=== PATIENT | female | born 1950 | race Two or more races ===

== ENCOUNTER 2023-05-30 08:35 | Emergency (ER) | payer MEDICAID, MEDICARE ==
[~2023-05-30] VITALS: Ht 162.6 cm; Wt 100.0 kg
[~2023-05-30 08:35] MED LIST: CLO01T PO; NIFE-31 PO; OYST500T29 PO; POTA95TA2 OR; SIMV40TA18 PO
[2023-05-30 10:23] VITALS: BP 117/76; PULSE 84; RESP 24; TEMP 98; O2SAT 96
[2023-05-30] MEDS ORDERED: HYDROcodone-ACET 5/325MG TAB PO ONE (10:45)
[2023-05-30] MEDS ORDERED: MELO7.5T7 PO (13:05)
[2023-05-30] MEDS ORDERED: PRED20TA2 PO (13:05)
== END 2023-05-30 13:10 | disposition home or self-care (01) ==
LOC: ER 08:35 → EDBD 08:35 → ER 13:09
DX: M17.11 Unilateral primary osteoarthritis, right knee (principal); M19.071 Primary osteoarthritis, right ankle and foot; M54.16 Radiculopathy, lumbar region; I10 Essential (primary) hypertension; E78.5 Hyperlipidemia, unspecified; Z79.899 Other long term (current) drug therapy; Z88.6 Allergy status to analgesic agent; Z88.8 Allergy status to other drugs, medicaments and biological substances
CPT/HCPCS: 72131; 73562; 73630

== ENCOUNTER 2025-03-17 23:30 | Inpatient (IN) | payer OTHER, MEDICAID ==
[~2025-03-17] VITALS: Ht 152.4 cm; Wt 88.5 kg
[~2025-03-17 23:30] MED LIST changes: +MELO7.5T7 PO; +PRED20TA2 PO
[2025-03-18] VITALS (86 sets, daily range): BP systolic 116–171; BP diastolic 75–111; PULSE 84–168; RESP 13–94; TEMP 97.7–99.3; O2SAT 81–100
--- NOTE | 2025-03-18 00:02 | ED.PDOC ---
HPI Comments 75-year-old female who came to ER for chest pains. Patient has history of hypertension and dyslipidemia. Since 9:30 p.m., she has been experiencing substernal chest pains pressure, nonradiating, associated with the headaches and neck pain. Upon arrival blood pressure was elevated at 230/140 mm Hg Chief Complaint: Chest pain Time Seen by MD: 00:01 Primary Care Provider: UNKNOWN Reviewed Notes: Nurses Notes Allergies: Coded Allergies: Alcohol (Unverified Allergy, Unknown, 05/30/23) Aspirin (Unverified Allergy, Unknown, 05/30/23) Home Meds Active Scripts Prednisone (Prednisone) 20 Mg Tab, 40 MG PO DAILY, #20 MG Prov:ELEANOR FOSTER 05/30/23 Meloxicam (Meloxicam) 7.5 Mg Tab, 1 TAB PO BID, #30 TAB Prov:ELEANOR FOSTER 05/30/23 Reported Medications Omeprazole (Gnp Omeprazole) 20 Mg Tab, 20 MG PO PRN, TAB 03/18/25 Metoprolol Tartrate (Metoprolol Tartrate) 50 Mg Tab, 50 MG PO BID for 30 Days, MG 03/18/25 Losartan Potassium (Losartan Potassium) 50 Mg Tab, 50 MG PO DAILY for 30 Days, MG 03/18/25 Hydralazine Hcl (Hydralazine Hcl) 50 Mg Tab, 50 MG PO BID for 30 Days, MG 03/18/25 Oyster Shell Calcium (Calcium) 500 Mg Tab, 500 MG PO BID, TAB 01/13/14 Clonidine Hcl (CATAPRES TABLET) 0.1 Mg Tb, 0.1 MG PO HS 01/13/14 Nifedipine (Adalat Cc) 60 Mg Tab, 60 MG PO BID, TAB 01/13/14 Simvastatin (Simvastatin) 40 Mg Tab, 40 MG PO, TAB 01/13/14 Potassium (CHELATED POTASSIUM) 95 Mg Tab, 10 MEQ OR, TAB 01/13/14 Information Source: Patient Mode of Arrival: Ambulatory Severity: Moderate Timing: Hours Duration: Since onset Location: Substernal Radiation: No Radiation Quality: Pressure Onset: With Light Exertion Cardiac Risk Factors: Hyperlipidemia, HTN History of: Similar pain in past Modifying Factors: Nothing Associated Signs and Symptoms: Back Pain Past Medical History PAST MEDICAL HISTORY: High Lipids, HTN Surgical History: Denies all surgeries ICU REGISTERED NURSE History: No Pertinent ICU REGISTERED NURSE History Family History Family History: Reviewed,noncontributory to illness Social History Smoker: Non-Smoker Alcohol: Denies ETOH Use Drugs: Denies Drug Use Lives In: Home Constitutional: reports: weakness; denies: chills, diaphoresis, fatigue, fever, malaise, sweats, others EENTM: denies: blurred vision, double vision, ear bleeding, ear discharge, ear drainage, ear pain, ear ringing, eye pain, eye redness, hearing loss, mouth pain, mouth swelling, nasal discharge, nose bleeding, nose congestion, nose pain, photophobia, tearing, throat pain, throat swelling, voice changes, others Respiratory: denies: cough, hemoptysis, orthopnea, SOB at rest, shortness of breath, SOB with excertion, stridor, wheezing, others Cardiovascular: reports: chest pain; denies: dizzy spells, diaphoresis, Dyspnea on exertion, edema, irregular heart beat, left arm pain, lightheadedness, palpitations, PND, syncope, others Gastrointestinal: denies: abdomen distended, abdominal pain, blood streaked bowels, constipated, diarrhea, dysphagia, difficulty swallowing, hematemesis, melena, nausea, poor appetite, poor fluid intake, rectal bleeding, rectal pain, vomiting, others Genitourinary: denies: abnormal vagina bleeding, burning, dyspareunia, dysuria, flank pain, frequency, hematuria, incontinence, pain, , vagina discharge, urgency, others Neurological: reports: headache; denies: dizziness, fainting, left sided numbness, left sided weakness, numbness, paresthesia, pre-existing deficit, right sided numbness, right sided weakness, seizure, speech problems, tingling, tremors, weakness, others Musculoskeletal: reports: back pain; denies: gout, joint pain, joint swelling, muscle pain, muscle stiffness, neck pain, others Integumetry: denies: bruises, change in color, change in hair/nails, dryness, laceration, lesions, lumps, rash, wounds, others Allergic/Immunocompromised: denies: Difficulty Healing, Frequent Infections, Hives, Itching, others Hematologic/Lymphatic: denies: anemia, blood clots, easy bleeding, easy bruising, swollen glands, others Endocrine: denies: excessive hunger, excessive sweating, excessive thirst, excessive urination, flushing, intolerance to cold, intolerance to heat, unexplained weight gain, unexplained weight loss, others Psychiatric: denies: anxiety, bipolar disorder, depression, hopeless, panic disorder, schizophrenia, sleepless, suicidal, others Physical Exam General Appearance: No Apparent Distress, Normal HEENT: Normal ENT Inspection, Pharynx Normal, TMs Normal Neck: Full Range of Motion, Non-Tender, Normal, Normal Inspection Respiratory: Chest Non-Tender, Lungs Clear, No Accessory Muscle Use, No Respiratory Distress, Normal Breath Sounds Cardiovascular: No Edema, No JVD, No Murmur, No Gallop, Normal Peripheral Pulses, Regular Rate/Rhythm Breast Exam: Deferred Gastrointestinal: No Organomegaly, Non Tender, No Pulsatile Mass, Normal Bowel Sounds, Soft Genitalia: Deferred Pelvic: Deferred Rectal: Deferred Extremities: No calf tenderness, Normal capillary refill, Normal inspection, Normal range of motion, Non-tender, No pedal edema Musculoskeletal : Apperance: Normal Neurologic: Alert, filler leaf cutter long II-XII nml as Tested, No Motor Deficits, Normal Affect, Normal Mood, No Sensory Deficits Cerebellar Function: Normal Reflexes: Normal Skin: Dry, Normal Color, Warm Lymphatic: No Adenopathy EKG EKG : Pulse Rate (adult): 108 Cardiac Rhythm: Afib ST: New, Inf, Ant, Infarct Was a procedure done? Was a procedure done?: No CP Differential Dx Differential Diagnosis: Angina, Anxiety / Panic Attack Differential Diagnosis: HTN Essential, HTN Accelerated Differential Diagnosis: Angina, Chest Wall Pain, Costochondritis, Esophageal reflux/spasm, Gastritis, Myocardial Infarction X-Ray, Labs, Meds, VS Vital Signs Date Time Temp Pulse Resp B/P (MAP) Pulse Ox O2 Delivery O2 Flow Rate FiO2 03/18/25 00:02 97.9 137 28 197/112 (140) 93 97.9 03/18/25 00:02 108 03/17/25 23:43 108 03/17/25 23:37 97.8 128 22 216/134 94 97.8 Lab Test 03/18/25 00:02 Range/Units White Blood Count 11.5 H 4.4-10.8 10^3/uL Red Blood Count 4.98 4.0-5.20 10^6/uL Hemoglobin 15.2 12.2-16.2 g/dL Hematocrit 45.0 36.0-46.0 % Mean Corpuscular Volume 90.4 80.0-100.0 fL Mean Corpuscular Hemoglobin 30.5 28.0-32.0 pg Mean Corpuscular Hemoglobin Concent 33.8 32.0-36.0 g/dL Red Cell Distribution Width 13.8 11.8-14.3 % Platelet Count 251 140-450 10^3/uL Mean Platelet Volume 8.5 6.9-10.8 fL Neutrophils (%) (Auto) 70.8 37.0-80.0 % Lymphocytes (%) (Auto) 21.7 10.0-50.0 % Monocytes (%) (Auto) 5.8 0.0-12.0 % Eosinophils (%) (Auto) 1.1 0.0-7.0 % Basophils (%) (Auto) 0.6 0.0-2.0 % Neutrophils # (Auto) 8.1 1.6-8.6 10 ^3/uL Lymphocytes # (Auto) 2.5 0.4-5.4 10 ^3/uL Monocytes # (Auto) 0.7 0-1.3 10 ^3/uL Eosinophils # (Auto) 0.1 0-0.8 10 ^3/uL Basophils # (Auto) 0.1 0-0.2 10 ^3/uL Nucleated Red Blood Cells 0.1 % Prothrombin Time 10.6 9.3-11.8 sec Prothrombin Time INR 1.00 0.9-1.15 Activated Partial Thromboplast Time 26.6 24.5-34.5 SEC Sodium Level 139 136-145 mmol/L Potassium Level 3.2 L 3.5-5.1 mmol/L Chloride Level 102 98-107 mmol/L Carbon Dioxide Level 24 20-31 mmol/L Anion Gap 13 5-15 Blood Urea Nitrogen 12 9-23 mg/dL Creatinine 0.76 0.550-1.02 mg/dL Glomerular Filtration Rate Calc 81 >90 mL/min BUN/Creatinine Ratio 15.8 10.0-20.0 Serum Glucose 169 H 74-106 mg/dL Calcium Level 9.2 8.7-10.4 mg/dL Magnesium Level 1.9 1.6-2.6 mg/dL Total Bilirubin 0.5 0.2-1.0 mg/dL Aspartate Amino Transferase (AST) 45 H 13-40 U/L Alanine Aminotransferase (ALT) 18 7-40 U/L Alkaline Phosphatase 92 46-116 U/L Troponin I High Sensitivity 3352 *H </=34 ng/L Total Protein 7.6 5.7-8.2 g/dL Albumin 4.5 3.2-4.8 g/dL Time of 1ST Reevaluation: 23:58 Reevaluation 1ST: Unchanged Patient Education/Counseling: Diagnosis, Treatment Family Education/Counseling: Diagnosis, Treatment SEPSIS Sepsis Screen Physician Orders Chest Portable (03/17/25 23:57) Want Ad Receiver (03/17/25 23:57) Blood Pressure (03/17/25 23:57) Pulse Oximetry (03/17/25 23:57) Sodium Chloride Lock (Saline Lock Ns) (03/18/25 06:00) Aspirin Tablet (03/19/25 10:00) Oxygen Per Hour (03/17/25 23:57) Troponin-I Hs (03/18/25 02:57) Ct Angio Chest Contrast (03/17/25 23:57) Cl Left Heart Cath (03/18/25 00:23) Vital Signs Date Time Temp Pulse Resp B/P (MAP) Pulse Ox O2 Delivery O2 Flow Rate FiO2 03/18/25 00:02 97.9 137 28 197/112 (140) 93 97.9 03/18/25 00:02 108 03/17/25 23:43 108 03/17/25 23:37 97.8 128 22 216/134 94 97.8 Laboratory Tests Test 03/18/25 00:02 White Blood Count 11.5 10^3/uL (4.4-10.8) H Medications Medications Dose Ordered Sig/Davion Route Start Time Stop Time Status Last Admin Dose Admin Bivalirudin 250 mg STK-MED ONCE IV 03/18/25 00:28 03/18/25 00:25 DC 03/18/25 00:28 Fentanyl Citrate 100 mcg STK-MED ONCE .ROUTE 03/18/25 00:29 03/18/25 00:26 DC 03/18/25 00:29 Iodixanol 32,000 mg STK-MED ONCE IV 03/18/25 00:31 03/18/25 00:28 DC 03/18/25 00:31 Midazolam HCl 2 mg STK-MED ONCE .ROUTE 03/18/25 00:30 03/18/25 00:27 DC 03/18/25 00:30 Ondansetron HCl 4 mg STK-MED ONCE .ROUTE 03/18/25 00:49 03/18/25 00:47 DC 03/18/25 00:49 Departure 1 Departure Time of Disposition: 00:30 Impression: Primary Impression: Acute coronary syndrome Additional Impression: Acute inferior myocardial infarction Disposition: 09 ADMITTED INPATIENT Condition: Guarded Discharged With: Self Critical Care Note Critical Care Time?: Yes (35 min-critical care time only) Critical care comment: STEMI Total critical care time: Approximately 36 minutes Due to a high probability of clinically significant, life threatening deterioration, the patient required my highest level of preparedness to intervene emergently and I personally spent this critical care time directly and personally managing the patient. This critical care time included obtaining a history; examining the patient; pulse oximetry; ordering and review of studies; arranging urgent treatment with development of a management plan; evaluation of patient's response to treatment; frequent reassessment; and, discussions with other providers. This critical care time was performed to assess and manage the high probability of imminent, life-threatening deterioration that could result in multi-organ failure. It was exclusive of separately billable procedures and treating other patients. Stability Stability form required: No Heart Score Heart Score: Heart Score Response (Comments) Value History Highly Suspicious [address]-Deviation 2 Age >65 2 Risk Factors >3 or Hx ASHD 2 Troponin Normal limit 0 Total 8 I personally scribed for ANNI TELLEZ MD ([email or web address]) on 03/18/25 at 00:02. Electronically submitted by Leno Cardenas ([facility]). ANNI TELLEZ MD Mar 18, 2025 00:02
--- NOTE | 2025-03-18 00:16 | ECG ---
[facility] Test Date: 2025-03-17 Test Time: 23:43:08 Pat Name: JING VUONG Department: ED Room: [facility] Gender: F Time Signal Wirer: SARINA : 1950 Requested By: ANNI TELLEZ Order Number: [id number] Reading MD: Urbano Thrasher Measurements Intervals [place] Rate: 108 P: 0 UT: 0 QRS: 44 QRSD: 111 T: 76 QT: 369 QTc: 495 Interpretive Statements Atrial fibrillation Ventricular premature complex Inferior infarct, acute (RCA) Anterior infarct, acute Lateral leads are also involved Probable RV involvement, suggest recording right precordial leads Electronically Signed On 03-21-2025 10:23:03 PDT by Urbano Thrasher Please click the below link to view image of tracing.
[2025-03-18 00:17] LABS: Hematocrit 45.0 % (36.0-46.0); Hemoglobin 15.2 g/dL (12.2-16.2); Mean Corpuscular Hemoglobin 30.5 pg (28.0-32.0); Mean Corpuscular Volume 90.4 fL (80.0-100.0); Nucleated Red Blood Cells % 0.1 %
[2025-03-18] MEDS: HEPARIN SODIUM (PORCINE) 5000 UNITS/ML 1ML VIAL ONE (00:28)
[2025-03-18] MEDS: ATROPINE SULF 1 MG/10ml SYR ONE (00:28)
[2025-03-18] MEDS: VERAPAMIL 2.5MG/ML INJ 2ML VIAL IV ONE (00:28)
[2025-03-18] MEDS: ANGIOMAX 250 MG VIAL IV ONE (00:28)
[2025-03-18] MEDS: fentaNYL CITRATE 100 MCG/2 ML VL ONE (00:29)
[2025-03-18 00:30] LABS: Alanine Aminotransferase 18 U/L (7-40); Albumin 4.5 g/dL (3.2-4.8); Alkaline Phosphatase 92 U/L (46-116); Anion Gap 13 (5-15); BUN/Creatinine Ratio 15.8 (10.0-20.0); Blood Urea Nitrogen 12 mg/dL (9-23); Calcium 9.2 mg/dL (8.7-10.4); Carbon Dioxide 24 mmol/L (20-31); Chloride 102 mmol/L (98-107); Magnesium 1.9 mg/dL (1.6-2.6); Sodium 139 mmol/L (136-145); Total Protein 7.6 g/dL (5.7-8.2)
[2025-03-18] MEDS: LIDOCAINE 2%HCL (LOCAL ANESTH.) INJ 20ML MDV ONE (00:30)
[2025-03-18] MEDS: MIDAZOLAM HCL 2MG/2ML 2ml VIAL (1mg/ml) ONE (00:30)
[2025-03-18] MEDS: SODIUM CHL 0.9% 50 ML ONE (00:30)
[2025-03-18 00:31] LABS: Bilirubin, Total 0.5 mg/dL (0.2-1.0)
[2025-03-18] MEDS: IODIXANOL 320MG/ML 100ML BTL IV ONE (00:31)
[2025-03-18] MEDS: HEPARIN IN NS 1000Units/500mL 1,500 ML ONE (00:31)
--- NOTE | 2025-03-18 00:35 | DVHINCON2 ---
Date of service: Mar 18, 2025 History of Present Illness 75 yo F with hx of afib ? not compliant with doac, sees heritage cards, admitted for possibele stemi and inferior IL. pt had bp over 230 and chest pain radiating to back. irecommended to call code stemi but also to do a stat cta which is pending. i came to see patient and pt is in distress not taking doac. she has some kind of asa allergy but we have little information on this. Past Medical History reviewed Allergies: Coded Allergies: Alcohol (Unverified Allergy, Unknown, 05/30/23) Aspirin (Unverified Allergy, Unknown, 05/30/23) Home Meds Active Scripts Prednisone (Prednisone) 20 Mg Tab, 40 MG PO DAILY, #20 MG Prov:ELEANOR FOSTER 05/30/23 Meloxicam (Meloxicam) 7.5 Mg Tab, 1 TAB PO BID, #30 TAB Prov:ELEANOR FOSTER 05/30/23 Reported Medications Oyster Shell Calcium (Calcium) 500 Mg Tab, 500 MG PO BID, TAB 01/13/14 Clonidine Hcl (CATAPRES TABLET) 0.1 Mg Tb, 0.2 MG PO BID 01/13/14 Nifedipine (Adalat Cc) 60 Mg Tab, 60 MG PO BID, TAB 14 Simvastatin (Simvastatin) 40 Mg Tab, 40 MG PO, TAB 14 Potassium (CHELATED POTASSIUM) 95 Mg Tab, 10 MEQ OR, TAB 01/13/14 Current Medications Current Medications Medications (Trade) Dose Ordered Sig/Advion Route PRN Reason Start Time Stop Time Status Last Admin Sodium Chloride (Saline Lock Ns) 10 ml Q8HR IV 03/18/25 06:00 Aspirin 81 mg DAILY PO 03/19/25 10:00 UNV Review of Systems +chest pain +sob +neck pain +previous back pain diaphoresis Vital Signs Vital Signs Date Time Temp Pulse Resp B/P (MAP) Pulse Ox O2 Delivery O2 Flow Rate FiO2 03/18/25 00:02 108 03/17/25 23:37 97.8 22 216/134 94 97.8 Physical Exam mild to moderate distress s1 s2 irregular tachycardic diffuse rhonchi soft nt/nd trivial edema Labs/Diagnostic Data Labs Test 03/18/25 00:02 Range/Units White Blood Count 11.5 H 4.4-10.8 10^3/uL Red Blood Count 4.98 4.0-5.20 10^6/uL Hemoglobin 15.2 12.2-16.2 g/dL Hematocrit 45.0 36.0-46.0 % Mean Corpuscular Volume 90.4 80.0-100.0 fL Mean Corpuscular Hemoglobin 30.5 28.0-32.0 pg Mean Corpuscular Hemoglobin Concent 33.8 32.0-36.0 g/dL Red Cell Distribution Width 13.8 11.8-14.3 % Platelet Count 251 140-450 10^3/uL Mean Platelet Volume 8.5 6.9-10.8 fL Neutrophils (%) (Auto) 70.8 37.0-80.0 % Lymphocytes (%) (Auto) 21.7 10.0-50.0 % Monocytes (%) (Auto) 5.8 0.0-12.0 % Eosinophils (%) (Auto) 1.1 0.0-7.0 % Basophils (%) (Auto) 0.6 0.0-2.0 % Neutrophils # (Auto) 8.1 1.6-8.6 10 ^3/uL Lymphocytes # (Auto) 2.5 0.4-5.4 10 ^3/uL Monocytes # (Auto) 0.7 0-1.3 10 ^3/uL Eosinophils # (Auto) 0.1 0-0.8 10 ^3/uL Basophils # (Auto) 0.1 0-0.2 10 ^3/uL Nucleated Red Blood Cells 0.1 % Assessment inferior stemi r/o aortic dissection malignant HTN morbid obesity hx of afib afib rvr non compliance to doac Plan/Recommendation recommend emergency cath jaron after cta rules out dissection radiology delay may result in delay of stemi time but cta is necessary labs pending pain control further recs to follow pt was given informed consent in [place] with staff, at bedside 90 mins critical care time spent Plan discussed with: Patient, Spouse BELINDA WAGNER MD Mar 18, 2025 00:34
[2025-03-18 00:41] LABS: Glucose 169 mg/dL (74-106); Potassium 3.2 mmol/L (3.5-5.1)
--- NOTE | 2025-03-18 00:47 | DVH ---
CHEST RADIOGRAPH Indication: STEMI Technique: Single frontal view of the chest was obtained COMPARISON: None FINDINGS: Lines and Tubes: None Lungs: Multifocal bilateral pulmonary airspace disease, predominating within the bases. Moderate diff use increased prominence of the pulmonary vasculature. Pleura: No effusion. No pneumothorax. Cardiomediastinal contours: Cardiomegaly. Bones: Unremarkable IMPRESSION: 1. Cardiomegaly with pulmonary vascular congestion and bilateral lower lobe predominant airspace dise ase.
[2025-03-18] MEDS: ONDANSETRON HCL 4 MG/2 ML VIAL ONE ×2 (00:49→14:06)
[2025-03-18 01:00] LABS: INR 1.0 (0.9-1.15); Partial Thromboplastin Time 26.6 SEC (24.5-34.5); Prothrombin Time 10.6 sec (9.3-11.8)
--- NOTE | 2025-03-18 01:22 | DVHOP2 ---
Operative Report Operative Report CARDIAC PRINTER APPRENTICE PROCEDURE REPORT [place], [place] Date of Service: 03/18/25 Cat Skinner: Belinda Wagner MD PROCEDURES PERFORMED: Coronary angiogram, left heart catheterization, conscious sedation administration and supervision, less than 15 minutes; fluoroscopy use and interpretation. sedation 15-30 mins, PTCA 1 vessel, Acute DC intervention PREOPERATIVE DIAGNOSES: inferior STEMI POSTOP DIAGNOSIS: inferior STEMI DESCRIPTION OF PROCEDURE: The patient or appropriate family signed informed consent understanding the risks, benefits and alternatives of the procedure, they wished to proceed. The patient was brought to the cardiac aquatic laborer in n.p.o. state. The patient was prepped in a sterile fashion. Sedation was used per cardiac cath protocol. I administered 2 mL of 2% lidocaine to the right wrist. With an antegrade front wall puncture. I cannulated the right radial artery and placed a 6-[place] Glidesheath slender. Next, an intra-arterial spasmolytic was administered. Next, a - 6French Slayden catheter and JR4 guide and were used for coronary angiogram and LVEDP measurement and pressure pullback. At the completion of procedure, all guides and wires were removed, and there were no immediate complications. FINDINGS: RCA: very larged dominant vessel off the right sinus of Valsalva, there is mild plaque prox and mid . distall rca gives off rpDA that is acutely occluded very distally in a small branch about 2-2.25 mm in size at bifurcation. rpL is large and gives CX collaterals LEFT MAIN: Moderate size left main, it bifurcates into LAD and circumflex. distl LM has a 70% stenosis CIRCUMFLEX: Moderate caliber vessel coming off the left main with. mid CX is SPECIAL SERVICE OFFICER LAD: LAD is a moderate caliber vessel coming of the left main. prox LAD has moderate plaque. mid and distal LAD are patent INTERVENTION: We decided to proceed with coronary intervention. I started with a 6F _JR4 ___ Guide to intubate the _RCA _. Angiomax bolus and gtt was started. Following this, I decided to wire using an .014 BMW across the culprit lesion with ease. At this time, we performed balloon angioplasty with a _2.0 x 12 mm balloon 6__ ATMS over __15__ seconds with __3__ number of inflations. We went from macarena 0 to macarena 1-2 flow. this was a small distal vessel not amenable to stenting. CONCLUSIONS: 1. sp PTCA to an acutely occluded distal RPDA likely 2/2 to embolic from persistent afib not taking her doac PLAN: Aggressive risk factor modification and medical management for the patient. asa plavix for now likely needs doac mcc will need CT surgery eval for cabg once more stable amio gtt icu admit bp control, BELINDA WAGNER MD Mar 18, 2025 01:22
[2025-03-18] MEDS ORDERED: HEPARIN SODIUM (PORCINE) 5000 UNITS/ML 1ML VIAL IV ONE (01:30)
[2025-03-18] MEDS: AMIODARONE HCL (50 MG/ ML) 3 ML VIAL IV ONE (01:30)
[2025-03-18] MEDS: AMIODARONE BOLUS KIT 100 ML IV ONE (01:30)
[2025-03-18] MEDS ORDERED: NITROGLYCERIN 0.4 MG SL TAB SL PRN (01:30)
[2025-03-18] MEDS: CLOPIDOGREL BISULFATE 75 MG TAB ONE (01:30)
--- NOTE | 2025-03-18 02:00 | DVH ---
CLINICAL HISTORY: chest pain TECHNIQUE: CT angiogram of the chest was performed with intravenous contrast. 3D MIP reconstructed i mages were created and archived on the PACS system. This exam was performed according to our [facility] dose optimization program. Up-to-date CT equipment and radiation dose reduction techniques are u tilized as appropriate. 29.6 CTDI: 29.6 DLP: 2.54 WID: COMPARISON: None FINDINGS: Lower Neck: There is an 8 mm hypodense nodule in the left lobe of the thyroid on series 5, image 34. Axilla, Mediastinum and Maria Eugenia: No axillary lymphadenopathy. Mildly prominent mediastinal and hilar lym ph nodes. Heart and Great Vessels: Mild cardiomegaly with trace pericardial fluid. The thoracic aorta is paten t and normal caliber containing mild mixed atherosclerotic plaque. At least mild coronary artery calc ifications, 3-vessel. There is no central no central, segmental, or subsegmental pulmonary artery tika ling defect is seen to suggest pulmonary embolism. Airway, Lungs and Pleura: Trachea and central airways are patent. There is mild mosaic attenuation of the lungs. There is interlobular septal thickening in the lungs. There is ground-glass opacification of the lung parenchyma which is more pronounced in the mid to lower lungs.. Scattered linear areas o f atelectasis or scarring in the lungs. No pneumothorax or pleural effusion Chest Wall and Osseous Structures: Multilevel thoracic spondylosis. No destructive osseous lesion. Upper abdomen: Mild thickening of the bilateral adrenal glands. Tiny hypodensities in the bilateral k idneys which could reflect cysts. No acute abnormality in the upper abdomen. IMPRESSION: 1. No pulmonary embolism. 2. CHF and/or volume overload, with mild cardiomegaly, interstitial and alveolar pulmonary edema.
[2025-03-18] MEDS: HEPARIN DRIP/D5W 100UNITS/ML 250 ML IV SCH ×2 (02:08→11:00)
[2025-03-18] MEDS ORDERED: HEPARIN DRIP/D5W 100UNITS/ML 250 ML IV SCH (02:08)
[2025-03-18] MEDS: POTASSIUM CHL 20 Meq TABLET PO ONE (03:21)
[2025-03-18] MEDS: FUROSEMIDE 40 MG/4 ML VIAL IV ONE (03:21)
[2025-03-18] MEDS: AMIODARONE 360mg/200mL PREMIX 200 ML IV ONE (03:22)
[2025-03-18] MEDS: DIGOXIN (250MCG/ML) 2 ML AMPULE IV ONE ×3 (03:22→15:53)
[2025-03-18 03:59] LABS: Hematocrit 47.2 % (36.0-46.0); Hemoglobin 15.9 g/dL (12.2-16.2); Mean Corpuscular Hemoglobin 31.1 pg (28.0-32.0); Mean Corpuscular Volume 92.2 fL (80.0-100.0); Nucleated Red Blood Cells % 0.1 %
[2025-03-18 04:10] LABS: INR 1.48 (0.9-1.15); Partial Thromboplastin Time 63.6 SEC (24.5-34.5); Prothrombin Time 15.1 sec (9.3-11.8)
[2025-03-18] MEDS ORDERED: LOSA-534 PO (04:12)
[2025-03-18] MEDS ORDERED: HYDR50TA47 PO (04:12)
[2025-03-18] MEDS ORDERED: OMEP20TA PO (04:12)
[2025-03-18] MEDS ORDERED: METO-158 PO (04:12)
[2025-03-18] MEDS: SODIUM CHLOR 0.9% PF (SALINE LOCK) 10ML VIAL/SYR IV SCH (05:22)
[2025-03-18] MEDS: ACETAMINOPHEN 325 MG TAB PO PRN (06:30)
[2025-03-18] MEDS: LOSARTAN POTASSIUM 50 MG TAB PO SCH (07:04)
[2025-03-18] MEDS: HEPARIN DRIP/D5W 100UNITS/ML 250 ML IV ONE (07:47)
[2025-03-18] MEDS: METOPROLOL SUCCINATE XL 50 MG TAB PO SCH (09:52)
[2025-03-18] MEDS ORDERED: METOPROLOL SUCCINATE XL 50 MG TAB PO ONE (10:15)
[2025-03-18] MEDS: AMIODARONE 360mg/200mL PREMIX 200 ML IV SCH (10:40)
[2025-03-18 11:18] LABS: Hematocrit 47.0 % (36.0-46.0); Hemoglobin 15.9 g/dL (12.2-16.2); Mean Corpuscular Hemoglobin 30.7 pg (28.0-32.0); Mean Corpuscular Volume 90.6 fL (80.0-100.0); Nucleated Red Blood Cells % 0.0 %
[2025-03-18 11:36] LABS: Alanine Aminotransferase 42 U/L (7-40); Albumin 4.0 g/dL (3.2-4.8); Alkaline Phosphatase 83 U/L (46-116); Anion Gap 16 (5-15); BUN/Creatinine Ratio 15.2 (10.0-20.0); Bilirubin, Total 0.5 mg/dL (0.2-1.0); Blood Urea Nitrogen 16 mg/dL (9-23); Calcium 8.7 mg/dL (8.7-10.4); Carbon Dioxide 25 mmol/L (20-31); Chloride 95 mmol/L (98-107); Glucose 316 mg/dL (74-106); Magnesium 1.5 mg/dL (1.6-2.6); Potassium 3.8 mmol/L (3.5-5.1); Sodium 136 mmol/L (136-145); Total Protein 7.0 g/dL (5.7-8.2)
[2025-03-18 11:45] LABS: INR 1.15 (0.9-1.15); Prothrombin Time 12.0 sec (9.3-11.8)
[2025-03-18 11:47] LABS: Partial Thromboplastin Time 74.1 SEC (24.5-34.5)
--- NOTE | 2025-03-18 13:18 | DVHPN2 ---
Progress Note Date Seen: Mar 18, 2025 Medical Necessity Reason Pt with a Central, PICC or Fol: No Subjective Patient reports: Feels worse Other Systems: rapid afib +chest pain , sob headache Objective vital signs Vital Sign Date Time Temp Pulse Resp B/P (MAP) Pulse Ox O2 Delivery O2 Flow Rate FiO2 03/18/25 12:00 147 36 145/91 (109) 85 03/18/25 09:00 98.4 98.4 03/18/25 08:00 Nasal Cannula* 5 40 Total Intake and Output 03/17/25 03/17/25 03/18/25 15:00 23:00 07:00 Intake Total 423.32 ml Balance 423.32 ml medications Current Medications Medications Dose Ordered Sig/Davion Route Start Time Stop Time Status Last Admin Dose Admin Sodium Chloride 10 ml Q8HR IV 03/18/25 06:00 03/18/25 05:22 10 ML Aspirin 81 mg DAILY PO 03/19/25 10:00 UNV Nitroglycerin 0.4 mg Q5MINP PRN SL 03/18/25 01:30 Morphine Sulfate 2 mg Q30M PRN IV 03/18/25 01:30 Amiodarone HCL/ Dextrose 200 ml @ 16.66 mls/ hr Q12H IV 03/18/25 07:45 03/18/25 10:40 16.66 MLS/HR Acetaminophen 500 mg Q4HP PRN PO 03/18/25 06:15 03/18/25 06:30 500 MG Losartan Potassium 50 mg DAILY PO 03/18/25 10:00 03/18/25 07:04 50 MG Metoprolol Succinate 50 mg DAILY PO 03/19/25 10:00 Heparin Sodium/ Dextrose 250 ml @ 10 mls/hr Q24H IV 03/18/25 11:00 03/18/25 18:00 Apixaban 5 mg BID PO 03/19/25 10:00 Examination: GENERAL:Abnormal, HEENT:Abnormal, LUNGS:Abnormal, CVS:Abnormal, ABDOMEN:Abnormal laboratory and microbiology Laboratory Tests 03/18/25 11:04 Test 03/18/25 11:04 Range/Units Serum Glucose 316 H 74-106 mg/dL Problem List/Assessment/Plan Problem List/Assessment/Plan stemi resp failure severe chf afib rvr non complaince morbid obesity ckd severe 3v cad cont heparin gtt prn norco pulm consult for hypoxia iv lasix 2nd dose place blanco consider abg if indicated nebs as needed pt is in critical condition with high risk for decompensation d/w RN multiple times dw 90 mins critical care time spent today Plan discussed with: Patient My Orders My Orders Orders - BELINDA WAGNER MD Procedure Category Date Status Time Cl Left Heart Cath CL 03/18/25 Taken 00:23 Admit ADMIT 03/18/25 Transmitted 01:22 Admit ADMIT 03/18/25 Transmitted 01:23 Nitroglycerin PHA 03/18/25 In Process Sublingual (Ntrostat 01:30 Morphine Sulfate PHA 03/18/25 In Process Injection 01:30 Stat Ekg For Chest STUART 03/18/25 In Process Pain 01:23 Notify Of Changes STUART 03/18/25 In Process From Base 01:23 Woven Wood Shade Assembler For STUART 03/18/25 In Process 24 Hours 01:23 Emergency Dysrhythmia STUART 03/18/25 In Process Protocol 01:23 Rhythm Strips Once STUART 03/18/25 In Process Every Shift 01:23 Oxygen By Nasal RT 03/18/25 Transmitted Cannula 01:23 Platelet Monitoring STUART 03/18/25 In Process 01:23 Heparin Per STUART 03/18/25 In Process Standardized Proce 01:23 Discontinue All Im STUART 03/18/25 In Process Injections 01:23 Stat Ekg For Chest STUART 03/18/25 In Process Pain 01:23 Amiodarone PHA 03/18/25 In Process 360mg/200ml Premix 07:45 Communication Order ORDERS 03/18/25 Transmitted 01:26 Post Cath Vital Signs STUART 03/18/25 In Process Q 15min 02:46 Post Cath Activity STUART 03/18/25 In Process Protocol 02:46 Mrsa Screen BRIAN 03/18/25 In Process 05:27 Losartan Tablet PHA 03/18/25 In Process (Cozaar Tablet) 10:00 Metoprolol Xl PHA 03/19/25 In Process Succinate (Toprol Xl) 10:00 *Consult Dr[address] Morales CONS 03/18/25 Transmitted Calista 10:13 Insert Blanco Catheter STUART 03/18/25 In Process 10:13 Bedrest STUART 03/18/25 In Process 10:13 Heparin Drip/D5w PHA 03/18/25 In Process 100units/Ml 11:00 Communication Order ORDERS 03/18/25 Transmitted 19:00 Apixaban (Eliquis) PHA 03/19/25 In Process 10:00 Apixaban (Eliquis) PHA 03/18/25 In Process 20:00 PTPTT LAB 03/18/25 Logged 17:00 Heparin Per Pharmacy STUART 03/18/25 In Process Protocol 12:30 Date of Service: Mar 18, 2025 Billing Provider: BELINDA WAGNER MD Common Visit Codes: NOT BILLABLE BELINDA WAGNER MD Mar 18, 2025 13:18
--- NOTE | 2025-03-18 13:23 | DVHSR ---
APPROVED REPORT EXAM: Two-dimensional and M-mode echocardiogram with Doppler and color Doppler. Blood Pressure: 154/83 mmHg INDICATION STEMI RISK FACTORS Obesity: Height: 5', Weight: 193 DIMENSIONS LVDd3.5 (3.8-5.7cm)LA (2D)4.3 (1.9-4.0cm)Aortic Root3.0 (2.0-3.7cm) LVDs3.2 (2.5-4.0cm)LA (MM) (1.9-4.0cm)Aortic Cusp Exc1.5 (1.5-2.0cm) EF (%) 25.0 (55-70%)Rt. Atrium4.5 (1.9-4.0cm)Asc. Aorta cm IVSd1.4 (0.7-1.1cm)RV (D) (1.8-2.4cm) PWd1.4 (0.7-1.1cm) Mitral Valve MitralMitral Stenosis E wave1.30m/sMV Mean GR.mmHg E/A ratio0.02D MVAcm2 Aortic Valve Aortic ValveAortic Stenosis V10.90m/Lior Mean GR.5mmHg V21.70m/Lior Peak GR.13mmHg LVOT Diameter1.9 (1.8-2.4cm)Doppler AVA1.50cm2 Pulmonic Valve V20.70m/s Tricuspid Valve TR Velocity3.60m/s [id number] Other Information Quality : Rhythm : Atrial Fibrillation Conclusion lvef 30% apex is hypokinetic inferior wall hypokinetic basal wal is normokinetic RV not well seen left atrium enarged mild mitral regurg moderate tricuspid rgurg
[2025-03-18] MEDS ORDERED: HYDROcodone-ACET 5/325MG TAB PO PRN (13:30)
[2025-03-18] MEDS ORDERED: ONDANSETRON HCL 4 MG/2 ML VIAL IV PRN (13:45)
[2025-03-18] MEDS ORDERED: MORPHINE SULFATE INJ 2 MG/ml SYRG IV PRN (14:45)
[2025-03-18] MEDS: METOPROLOL TARTRATE 1MG/1ML-5ML VIAL IV ONE (14:45)
--- NOTE | 2025-03-18 14:52 | DVH ---
CHEST RADIOGRAPH Indication: shortness of breath, status change Technique: Single frontal view of the chest was obtained Comparison: XY CHEST PORTABLE on DOS: 03/18/25, CT CT ANGIO CHEST CONTRAST on DOS: 03/17/25 FINDINGS: Lines and Tubes: None Lungs: Dense patchy bilateral airspace disease may represent pulmonary edema. Pleura: No effusion. No pneumothorax. Cardiomediastinal contours: Stable cardiomegaly Bones: No acute osseous abnormality. IMPRESSION: 1. Dense patchy bilateral airspace disease may represent pulmonary edema. 2. Change from 03/18/2020 00:15:03 a.m.
[2025-03-18] MEDS: MORPHINE SULFATE INJ 2 MG/ml SYRG IV PRN (15:08)
[2025-03-18 16:07] LABS: Base Excess 2.4 mmol/L (-2.0-3.0)
[2025-03-18 16:15] LABS: COVID19 ANTIGEN SOFIA FIA NEGATIVE (NEGATIVE)
[2025-03-18 16:24] LABS: Base Excess 2.0 mmol/L (-2.0-3.0)
[2025-03-18] MEDS: MAGNESIUM SULFATE 1GM/100ML 100 ML IV SCH (16:46)
[2025-03-18] MEDS: FUROSEMIDE 40 MG/4 ML VIAL IV SCH (16:53)
[2025-03-18] MEDS: VANCOMYCIN 1.5GM/250ML 250 ML IV ONE (17:15)
[2025-03-18] MEDS: METOPROLOL SUCCINATE XL 50 MG TAB PO ONE (17:27)
[2025-03-18 18:02] LABS: INR 1.15 (0.9-1.15); Partial Thromboplastin Time 89.3 SEC (24.5-34.5); Prothrombin Time 12.0 sec (9.3-11.8)
[2025-03-18 18:15] LABS: Urine Protein, UAD 1+ (Negative)
[2025-03-18] MEDS: APIXABAN 5 MG TAB PO ONE (20:04)
[2025-03-18] MEDS: MAGNESIUM SULFATE 1GM/100ML 100 ML IV ONE (20:25)
[2025-03-18] MEDS: LORazepam 0.5 MG TAB PO PRN (21:05)
[2025-03-19] VITALS (43 sets, daily range): BP systolic 93–138; BP diastolic 61–89; PULSE 50–131; RESP 15–53; TEMP 97.7–99.3; O2SAT 86–97
--- NOTE | 2025-03-19 10:45 | DVHHP2 ---
Admitting Diagnosis: STEMI History of Present Illness HPI Patient is a 75-year-old female, Jehovah witness who presents due to complaint of chest pain that began the night prior. Patient's blood pressure was elevated on admission at 230/140. Code STEMI was called in the ER and patient was taken to [facility]. She underwent angioplasty of the RCA without stent placement. Patient was admitted to ICU and noted to be hypoxic, in atrial fibrillation with RVR and hypertensive. TTE showed EF of 30%. Patient admitted to ICU for further medical management. Home Meds Active Scripts Prednisone (Prednisone) 20 Mg Tab, 40 MG PO DAILY, #20 MG Prov:ELEANOR FOSTER 05/30/23 Meloxicam (Meloxicam) 7.5 Mg Tab, 1 TAB PO BID, #30 TAB Prov:ELEANOR FOSTER 05/30/23 Reported Medications Omeprazole (Gnp Omeprazole) 20 Mg Tab, 20 MG PO PRN, TAB 03/18/25 Metoprolol Tartrate (Metoprolol Tartrate) 50 Mg Tab, 50 MG PO BID for 30 Days, MG 03/18/25 Losartan Potassium (Losartan Potassium) 50 Mg Tab, 50 MG PO DAILY for 30 Days, MG 03/18/25 Hydralazine Hcl (Hydralazine Hcl) 50 Mg Tab, 50 MG PO BID for 30 Days, MG 03/18/25 Oyster Shell Calcium (Calcium) 500 Mg Tab, 500 MG PO BID, TAB 01/13/14 Clonidine Hcl (CATAPRES TABLET) 0.1 Mg Tb, 0.1 MG PO HS 01/13/14 Nifedipine (Adalat Cc) 60 Mg Tab, 60 MG PO BID, TAB 01/13/14 Simvastatin (Simvastatin) 40 Mg Tab, 40 MG PO, TAB 01/13/14 Potassium (CHELATED POTASSIUM) 95 Mg Tab, 10 MEQ OR, TAB 01/13/14 Past Medical History Cardiac: HTN Review of Systems Pulmonary/Respiratory: Dyspnea Cardiovascular: Chest Pain H&P Exam Vital Signs Vital Signs Date Time Temp Pulse Resp B/P (MAP) Pulse Ox O2 Delivery O2 Flow Rate FiO2 03/19/25 07:30 95 15 92 Hi-Flow Heated NC+ 50 60 60 03/19/25 07:01 97.7 115/71 (86) 97.7 General Appeara: Mild distress Pulmonary/Respiratory: Crackles Cardiovascular/Chest: Irregularly irregular Neuro/Mental St: Alert SEPSIS Sepsis Screen Date sepsis recognized/suspect: Mar 17, 2025 Time Sepsis recognized/suspect: 2341 Recent Procedure: No On Antibiotic Therapy: No Respiratory Rate >20: No Heart Rate >90: No Temp<36 C (96.8 F) or >38.3 C: No SBP <90 or MAP <65 mmHG: No New Acute Mental Status Change: No Is the patient on CPAP, BIPAP,: No Physician Orders Complete Blood Count (03/19/25 10:10) Basic Metabolic Panel (03/19/25 10:10) *Consult / (03/19/25 10:43) Albumin Ivpb (03/19/25 10:45) Vital Signs Date Time Temp Pulse Resp B/P (MAP) Pulse Ox O2 Delivery O2 Flow Rate FiO2 03/19/25 07:30 95 15 92 Hi-Flow Heated NC+ 50 60 60 03/19/25 07:30 15 92 Hi-Flow Heated NC+ 50 60 60 03/19/25 07:01 97.7 102 16 115/71 (86) 93 97.7 03/19/25 06:01 93 53 119/76 (90) 96 03/19/25 06:00 53 96 Hi-Flow Heated NC+ 50 65 65 03/19/25 06:00 93 03/19/25 05:32 116/68 03/19/25 05:01 100 44 116/68 (84) 94 03/19/25 04:23 98.7 93 41 119/64 (82) 92 98.7 03/19/25 04:00 107 03/19/25 04:00 42 93 Hi-Flow Heated NC+ 50 65 65 03/19/25 03:00 90 45 118/72 (87) 93 Labs/Xrays Labs Test 03/18/25 17:21 03/18/25 17:00 03/18/25 16:15 03/18/25 14:45 Range/Units Prothrombin Time 12.0 H 9.3-11.8 sec Prothrombin Time INR 1.15 0.9-1.15 Activated Partial Thromboplast Time 89.3 *H 24.5-34.5 SEC Urine Color Yellow Yellow Urine Clarity Clear Clear Urine pH 6.0 5.0-9.0 Urine Specific [place] > 1.050 H 1.001-1.035 Urine Protein 1+ H Negative Urine Ketones Trace Negative Urine Blood 2+ H Negative /uL Urine Nitrite Negative Negative Urine Bilirubin Negative Negative Urine Urobilinogen Normal Negative mg/dL Urine Leukocyte Esterase Negative Negative /uL Urine RBC 38 0 - 4 /hpf Urine Microscopic WBC 2 0-5 /HPF Urine Squamous Epithelial Cells None seen <5 /hpf Urine Bacteria None seen None Seen /hpf Urine Mucus Few None Seen Urine Glucose Trace Normal mg/dL Blood Gas Specimen Type Arterial Blood Gas Sample Site Right radial Blood Gas Patient Temperature 37.0 Arterial Blood Date Drawn [id number] Arterial Blood pH 7.463 H 7.350-7.450 Arterial Blood Partial Pressure CO2 36.3 32.0-45.0 mmHg Arterial Blood Partial Pressure O2 70.0 L 83.0-108.0 mmHg Arterial Blood HCO3 25.4 21.0-28.0 mmol/L Arterial Blood Oxygen Saturation 94.1 94.0-98.0 % Arterial Blood Base Excess 2.0 -2.0-3.0 mmol/L Arterial Blood Oxyhemoglobin 93.3 L 94.0-98.0 % Arterial Blood Carboxyhemoglobin 0.6 0.5-1.5 % Arterial Blood Methemoglobin 0.3 0.0-1.5 % Rocky Test Yes Blood Gas Total Hemoglobin 16.90 H 12.0-16.0 g/dL Blood Gas Liter Flow 50.00 Blood Gas Modality High flow FiO2 % 90.0 Influenza Type A Antigen Negative Negative Influenza Type B Antigen Negative Negative SARS-CoV-2 Antigen (Rapid) Negative NEGATIVE Test 03/18/25 14:30 03/18/25 11:04 Range/Units Blood Gas Spontaneous Rate 22 White Blood Count 20.4 #H 4.4-10.8 10^3/uL Red Blood Count 5.19 4.0-5.20 10^6/uL Hemoglobin 15.9 12.2-16.2 g/dL Hematocrit 47.0 H 36.0-46.0 % Mean Corpuscular Volume 90.6 80.0-100.0 fL Mean Corpuscular Hemoglobin 30.7 28.0-32.0 pg Mean Corpuscular Hemoglobin Concent 33.8 32.0-36.0 g/dL Red Cell Distribution Width 14.1 11.8-14.3 % Platelet Count 263 140-450 10^3/uL Mean Platelet Volume 8.6 6.9-10.8 fL Neutrophils (%) (Auto) 89.2 H 37.0-80.0 % Lymphocytes (%) (Auto) 5.5 L 10.0-50.0 % Monocytes (%) (Auto) 4.8 0.0-12.0 % Eosinophils (%) (Auto) 0.1 0.0-7.0 % Basophils (%) (Auto) 0.4 0.0-2.0 % Neutrophils # (Auto) 18.2 H 1.6-8.6 10 ^3/uL Lymphocytes # (Auto) 1.1 0.4-5.4 10 ^3/uL Monocytes # (Auto) 1.0 0-1.3 10 ^3/uL Eosinophils # (Auto) 0 0-0.8 10 ^3/uL Basophils # (Auto) 0.1 0-0.2 10 ^3/uL Nucleated Red Blood Cells 0.0 % Sodium Level 136 136-145 mmol/L Potassium Level 3.8 3.5-5.1 mmol/L Chloride Level 95 L 98-107 mmol/L Carbon Dioxide Level 25 20-31 mmol/L Anion Gap 16 H 5-15 Blood Urea Nitrogen 16 9-23 mg/dL Creatinine 1.05 #H 0.550-1.02 mg/dL Glomerular Filtration Rate Calc 55 >90 mL/min BUN/Creatinine Ratio 15.2 10.0-20.0 Serum Glucose 316 H 74-106 mg/dL Calcium Level 8.7 8.7-10.4 mg/dL Magnesium Level 1.5 L 1.6-2.6 mg/dL Total Bilirubin 0.5 0.2-1.0 mg/dL Aspartate Amino Transferase (AST) 270 H 13-40 U/L Alanine Aminotransferase (ALT) 42 H 7-40 U/L Alkaline Phosphatase 83 46-116 U/L Troponin I High Sensitivity > 26860 *H </=34 ng/L B-Type Natriuretic Peptide 405.63 0-100 pg/mL Total Protein 7.0 5.7-8.2 g/dL Albumin 4.0 3.2-4.8 g/dL Microbiology Date/Time Source Procedure Growth Status 03/18/25 04:30 Nose MRSA Screen - Final Complete Assessment/Plan Primary Diagnosis 1. STEMI Plan 2. Hypoxic Respiratory Failure, on HiFlo 3. CHF Exacerbation 4. End Stage CHF, EF 30% 5. Atrial Fibrillation with RVR 6. CARLOS Plan: - Cardiology consulted - Lasix 40 mg IV twice daily - Strict I's and O's with goal urinary output 2 to 3 L daily - Nephrology consulted due to concern for oliguria and CARLOS. Consider switching diuretic to Bumex. Avoid nephrotoxic medications. CARLOS likely worsening from multiple factors (contrast, diuretics, hypoperfusion from afib, congestion from CHF). - Renal ultrasound ordered - Pulmonary consulted for acute respiratory failure now currently on high flow. Presentation consistent with volume overload secondary to CHF. -Albumin 25-grams x 1 -Patient is Jehovah witness. No blood products. -Daily CBC and BMP - Full code Plan discussed with: Patient EDWARDO NESBITT Mar 19, 2025 10:45
[2025-03-19 11:12] LABS: Hematocrit 45.3 % (36.0-46.0); Hemoglobin 15.5 g/dL (12.2-16.2); Mean Corpuscular Hemoglobin 31.2 pg (28.0-32.0); Mean Corpuscular Volume 91.0 fL (80.0-100.0); Nucleated Red Blood Cells % 0.0 %
[2025-03-19 11:22] LABS: Potassium 3.7 mmol/L (3.5-5.1)
[2025-03-19 11:23] LABS: Anion Gap 10 (5-15); Calcium 8.9 mg/dL (8.7-10.4); Carbon Dioxide 27 mmol/L (20-31)
[2025-03-19 11:28] LABS: BUN/Creatinine Ratio 12.3 (10.0-20.0); Blood Urea Nitrogen 15 mg/dL (9-23)
[2025-03-19 11:45] LABS: Chloride 96 mmol/L (98-107); Glucose 181 mg/dL (74-106); Sodium 133 mmol/L (136-145)
[2025-03-19] MEDS: LOSARTAN POTASSIUM 50 MG TAB PO SCH (11:45)
[2025-03-19] MEDS: METOPROLOL SUCCINATE XL 50 MG TAB PO SCH (11:45)
[2025-03-19] MEDS: ALBUMIN 25% 50 ML IV ONE (11:48)
[2025-03-19] MEDS: APIXABAN 5 MG TAB PO SCH (12:11)
--- NOTE | 2025-03-19 14:33 | DVHINCON2 ---
Date of service: Mar 19, [address] Liu Reason for Consultation Acute respiratory failure History of Present Illness History Source: Patient Exam Limitations: No limitations HPI Patient is a 75-year old lady with a history of diabetes and hypertension who presented with substernal chest pain. Was seen in the emergency room where she was found to have STEMI and she was subsequently taken to the research laboratory manager for intervention. After the procedure, patient was found to be hypoxemic and required high flow 60%, pulmonology was consulted to assist in management. Home Meds Active Scripts Prednisone (Prednisone) 20 Mg Tab, 40 MG PO DAILY, #20 MG Prov:ELEANOR FOSTER 05/30/23 Meloxicam (Meloxicam) 7.5 Mg Tab, 1 TAB PO BID, #30 TAB Prov:ELEANOR FOSTER 05/30/23 Reported Medications Omeprazole (Gnp Omeprazole) 20 Mg Tab, 20 MG PO PRN, TAB 03/18/25 Metoprolol Tartrate (Metoprolol Tartrate) 50 Mg Tab, 50 MG PO BID for 30 Days, MG 03/18/25 Losartan Potassium (Losartan Potassium) 50 Mg Tab, 50 MG PO DAILY for 30 Days, MG 03/18/25 Hydralazine Hcl (Hydralazine Hcl) 50 Mg Tab, 50 MG PO BID for 30 Days, MG 03/18/25 Oyster Shell Calcium (Calcium) 500 Mg Tab, 500 MG PO BID, TAB 01/13/14 Clonidine Hcl (CATAPRES TABLET) 0.1 Mg Tb, 0.1 MG PO HS 01/13/14 Nifedipine (Adalat Cc) 60 Mg Tab, 60 MG PO BID, TAB 01/13/14 Simvastatin (Simvastatin) 40 Mg Tab, 40 MG PO, TAB 01/13/14 Potassium (CHELATED POTASSIUM) 95 Mg Tab, 10 MEQ OR, TAB 01/13/14 Past Medical History Cardiac: HTN Pulmonary: No pertinent Hx Central Nervous System: No pertinent Hx GI: No pertinent Hx Hemotology/Oncology: No pertinent Hx Hepatobiliary: No pertinent Hx Psychiatric: No pertinent Hx Musculoskeletal: No pertinent Hx Rheumotologic: No pertinent Hx Infectious Disease: No peritnent Hx ENT: No pertinent Hx Renal/: No pertinent Hx Endocrine: NIDDM Dermatology: No pertinent Hx Past Surgical History: No pertinent Hx Family History: No pertinent Hx Smoker: No Hx (Negative) Alocohol: None Drugs: None Lives with: With family Domestic Violence: Neg Review of Systems Constitutional: No symptom reported Ears, Nose, & Throat: No symptom reported Eyes: No symptom reported Pulmonary/Respiratory: No symptom reported Cardiovascular: Chest Pain Gastrointestinal: No symptom reported Genitourinary: No symptom reported Musculoskeletal: No symptom reported Skin: No symptom reported Psychiatric: No symptom reported Endocrine: No symptom reported Hemotologic/Lymphatic: No symptom reported H&P Exam Vital Signs Vital Signs Date Time Temp Pulse Resp B/P (MAP) Pulse Ox O2 Delivery O2 Flow Rate FiO2 03/19/25 14:00 118 03/19/25 14:00 18 127/89 (102) 94 03/19/25 14:00 Hi-Flow Heated NC+ 50 60 60 03/19/25 11:01 99.0 99.0 General Appeara: Well developed, Well nourished, Normal Appearance Head Exam: Normal inspection Neck Exam: Normal inspection, Non-tender, Normal alignment Eye Exam: bilateral eye Normal inspection, bilateral eye PERRL, bilateral eye EOMI Ear Exam: bilateral ear Auricle normal, bilateral ear Canal normal, bilateral ear TM normal Nasal Exam: Normal inspection Mouth: Normal Inspection Pulmonary/Respiratory: Decreased breath sounds Cardiovascular/Chest: Normal inspection Peripheral Pulses: 4+ Radial (R), 4+ Radial (L), 4+ Brachial (R), 4+ Brachial (L) Abdominal Exam: Normal bowel sounds Labs/Xrays Labs Test 03/19/25 10:42 03/18/25 17:21 03/18/25 17:00 03/18/25 16:15 Range/Units White Blood Count 16.0 H 4.4-10.8 10^3/uL Red Blood Count 4.98 4.0-5.20 10^6/uL Hemoglobin 15.5 12.2-16.2 g/dL Hematocrit 45.3 36.0-46.0 % Mean Corpuscular Volume 91.0 80.0-100.0 fL Mean Corpuscular Hemoglobin 31.2 28.0-32.0 pg Mean Corpuscular Hemoglobin Concent 34.3 32.0-36.0 g/dL Red Cell Distribution Width 14.0 11.8-14.3 % Platelet Count 214 140-450 10^3/uL Mean Platelet Volume 8.6 6.9-10.8 fL Neutrophils (%) (Auto) 88.7 H 37.0-80.0 % Lymphocytes (%) (Auto) 6.6 L 10.0-50.0 % Monocytes (%) (Auto) 4.6 0.0-12.0 % Eosinophils (%) (Auto) 0.0 0.0-7.0 % Basophils (%) (Auto) 0.1 0.0-2.0 % Neutrophils # (Auto) 14.2 H 1.6-8.6 10 ^3/uL Lymphocytes # (Auto) 1.1 0.4-5.4 10 ^3/uL Monocytes # (Auto) 0.7 0-1.3 10 ^3/uL Eosinophils # (Auto) 0 0-0.8 10 ^3/uL Basophils # (Auto) 0 0-0.2 10 ^3/uL Nucleated Red Blood Cells 0.0 % Sodium Level 133 L 136-145 mmol/L Potassium Level 3.7 3.5-5.1 mmol/L Chloride Level 96 L 98-107 mmol/L Carbon Dioxide Level 27 20-31 mmol/L Anion Gap 10 5-15 Blood Urea Nitrogen 15 9-23 mg/dL Creatinine 1.22 H 0.550-1.02 mg/dL Glomerular Filtration Rate Calc 46 >90 mL/min BUN/Creatinine Ratio 12.3 10.0-20.0 Serum Glucose 181 H 74-106 mg/dL Calcium Level 8.9 8.7-10.4 mg/dL Prothrombin Time 12.0 H 9.3-11.8 sec Prothrombin Time INR 1.15 0.9-1.15 Activated Partial Thromboplast Time 89.3 *H 24.5-34.5 SEC Urine Color Yellow Yellow Urine Clarity Clear Clear Urine pH 6.0 5.0-9.0 Urine Specific [place] > 1.050 H 1.001-1.035 Urine Protein 1+ H Negative Urine Ketones Trace Negative Urine Blood 2+ H Negative /uL Urine Nitrite Negative Negative Urine Bilirubin Negative Negative Urine Urobilinogen Normal Negative mg/dL Urine Leukocyte Esterase Negative Negative /uL Urine RBC 38 0 - 4 /hpf Urine Microscopic WBC 2 0-5 /HPF Urine Squamous Epithelial Cells None seen <5 /hpf Urine Bacteria None seen None Seen /hpf Urine Mucus Few None Seen Urine Glucose Trace Normal mg/dL Blood Gas Specimen Type Arterial Blood Gas Sample Site Right radial Blood Gas Patient Temperature 37.0 Arterial Blood Date Drawn [id number] Arterial Blood pH 7.463 H 7.350-7.450 Arterial Blood Partial Pressure CO2 36.3 32.0-45.0 mmHg Arterial Blood Partial Pressure O2 70.0 L 83.0-108.0 mmHg Arterial Blood HCO3 25.4 21.0-28.0 mmol/L Arterial Blood Oxygen Saturation 94.1 94.0-98.0 % Arterial Blood Base Excess 2.0 -2.0-3.0 mmol/L Arterial Blood Oxyhemoglobin 93.3 L 94.0-98.0 % Arterial Blood Carboxyhemoglobin 0.6 0.5-1.5 % Arterial Blood Methemoglobin 0.3 0.0-1.5 % Rocky Test Yes Blood Gas Total Hemoglobin 16.90 H 12.0-16.0 g/dL Blood Gas Liter Flow 50.00 Blood Gas Modality High flow FiO2 % 90.0 Test 03/18/25 14:45 03/18/25 14:30 03/18/25 11:04 Range/Units Influenza Type A Antigen Negative Negative Influenza Type B Antigen Negative Negative SARS-CoV-2 Antigen (Rapid) Negative NEGATIVE Blood Gas Spontaneous Rate 22 Magnesium Level 1.5 L 1.6-2.6 mg/dL Total Bilirubin 0.5 0.2-1.0 mg/dL Aspartate Amino Transferase (AST) 270 H 13-40 U/L Alanine Aminotransferase (ALT) 42 H 7-40 U/L Alkaline Phosphatase 83 46-116 U/L Troponin I High Sensitivity > 26521 *H </=34 ng/L B-Type Natriuretic Peptide 405.63 0-100 pg/mL Total Protein 7.0 5.7-8.2 g/dL Albumin 4.0 3.2-4.8 g/dL Microbiology Date/Time Source Procedure Growth Status 03/18/25 04:30 Nose MRSA Screen - Final Complete Assessment/Plan Plan Impression Acute hypoxemic respiratory failure Pulmonary edema vs pneumonia Atelectasis STEMI Patient seen and examined in [facility] Events High oxygen requirements On bipap settings 26/01 Respiratory status tenuous Labs and imaging reviewed Chest x-ray shows almost complete white out suggestive of pulmonary edema vs pneumonia Management Supplemental oxygen Titrate to maintain sats 90% or above Incentive spirometry Prn bipap 06/19 For increased work of breathing Titrate to comfort Antibiotics Bronchodilators Diurese Monitor renal function Monitor electrolytes Supplement as needed F/u cardiology DVT prophylaxis Critical care time 35 minutes Plan discussed with: Patient PIPPA ROSARIO MD Mar 19, 2025 14:33
--- NOTE | 2025-03-19 15:04 | DVH ---
INDICATION: Oliguria TECHNIQUE: Multiple real-time sonographic images of the kidneys and bladder were obtained. COMPARISON: None FINDINGS: RIGHT kidney measures 9.47 cm in length. No hydronephrosis. LEFT kidney measures 0.05 cm in length. No hydronephrosis. No large intraluminal masses are seen in the bladder. Eledr catheter in bladder is emptying IMPRESSION: 1. No hydronephrosis. 2. Elder catheter noted in decompressed bladder.
[2025-03-19] MEDS: IPRATROPIUM BROM 0.5 MG/2.5ML INH SOL NEB ONE (17:11)
--- NOTE | 2025-03-19 17:39 | DVHINCON2 ---
Date of service: Mar 19, 2025 Reason for Consultation Acute kidney injury History of Present Illness 75-year-old female past medical history of coronary artery disease presents to the hospital with shortness of breath and chest pain. Patient was admitted as a STEMI, patient is status post heart catheterization which showed multivessel disease. She also received a CT of the chest to rule out pulmonary embolism. Her hospital course is notable for age performed fibrillation with rapid ventricular response and congestive heart failure with EF of 30%. Nephrology was consulted due to progressive worsening renal function. At presentation her blood pressure was significantly elevated however over the course of the hospitalization was developed hypotension due to tachyarrhythmia Past Medical History CAD Allergies: Coded Allergies: Alcohol (Unverified Allergy, Unknown, 05/30/23) Aspirin (Unverified Allergy, Unknown, 05/30/23) Home Meds Active Scripts Prednisone (Prednisone) 20 Mg Tab, 40 MG PO DAILY, #20 MG Prov:ELEANOR FOSTER 05/30/23 Meloxicam (Meloxicam) 7.5 Mg Tab, 1 TAB PO BID, #30 TAB Prov:ELEANOR FOSTER 05/30/23 Reported Medications Omeprazole (Gnp Omeprazole) 20 Mg Tab, 20 MG PO PRN, TAB 03/18/25 Metoprolol Tartrate (Metoprolol Tartrate) 50 Mg Tab, 50 MG PO BID for 30 Days, MG 03/18/25 Losartan Potassium (Losartan Potassium) 50 Mg Tab, 50 MG PO DAILY for 30 Days, MG 03/18/25 Hydralazine Hcl (Hydralazine Hcl) 50 Mg Tab, 50 MG PO BID for 30 Days, MG 03/18/25 Oyster Shell Calcium (Calcium) 500 Mg Tab, 500 MG PO BID, TAB 01/13/14 Clonidine Hcl (CATAPRES TABLET) 0.1 Mg Tb, 0.1 MG PO HS 01/13/14 Nifedipine (Adalat Cc) 60 Mg Tab, 60 MG PO BID, TAB 01/13/14 Simvastatin (Simvastatin) 40 Mg Tab, 40 MG PO, TAB 01/13/14 Potassium (CHELATED POTASSIUM) 95 Mg Tab, 10 MEQ OR, TAB 01/13/14 Current Medications Current Medications Medications (Trade) Dose Ordered Sig/Davion Route PRN Reason Start Time Stop Time Status Last Admin Aspirin 81 mg DAILY PO 03/19/25 10:00 Hold Metoprolol Succinate (Toprol Xl) 50 mg DAILY PO 03/19/25 10:00 03/19/25 11:45 Apixaban (Eliquis) 5 mg BID PO 03/19/25 10:00 03/19/25 12:11 Losartan Potassium (Cozaar Tablet) 50 mg DAILY PO 03/19/25 11:45 03/19/25 16:14 DC Review of Systems Shortness of breath and chest pain palpitations H&P Exam Vital Signs/I&O Vital Sign Date Time Temp Pulse Resp B/P (MAP) Pulse Ox O2 Delivery O2 Flow Rate FiO2 03/19/25 17:11 117 28 93 03/19/25 14:51 50.0 60 03/19/25 14:00 127/89 (102) 03/19/25 14:00 Hi-Flow Heated NC+ 03/19/25 11:01 99.0 99.0 Intake and Output 03/18/25 03/19/25 19:00 07:00 Intake Total 696.61 ml 243.26 ml Output Total 300 ml 200 ml Balance 396.61 ml 43.26 ml Intake Oral 60 ml IV Total 696.61 ml 183.26 ml Output Urine Total 300 ml 200 ml # Voids 1 # Bowel Movements 1 Physical Exam Elderly female Appears in respiratory distress Has expiratory wheezes Irregularly irregular rate and rhythm No pitting edema Elder catheter Labs/Diagnostic Data Labs/Diagnostic Data Laboratory Tests Test 03/19/25 10:42 03/18/25 17:21 03/18/25 17:00 03/18/25 16:15 Range/Units White Blood Count 16.0 H 4.4-10.8 10^3/uL Red Blood Count 4.98 4.0-5.20 10^6/uL Hemoglobin 15.5 12.2-16.2 g/dL Hematocrit 45.3 36.0-46.0 % Mean Corpuscular Volume 91.0 80.0-100.0 fL Mean Corpuscular Hemoglobin 31.2 28.0-32.0 pg Mean Corpuscular Hemoglobin Concent 34.3 32.0-36.0 g/dL Red Cell Distribution Width 14.0 11.8-14.3 % Platelet Count 214 140-450 10^3/uL Mean Platelet Volume 8.6 6.9-10.8 fL Neutrophils (%) (Auto) 88.7 H 37.0-80.0 % Lymphocytes (%) (Auto) 6.6 L 10.0-50.0 % Monocytes (%) (Auto) 4.6 0.0-12.0 % Eosinophils (%) (Auto) 0.0 0.0-7.0 % Basophils (%) (Auto) 0.1 0.0-2.0 % Neutrophils # (Auto) 14.2 H 1.6-8.6 10 ^3/uL Lymphocytes # (Auto) 1.1 0.4-5.4 10 ^3/uL Monocytes # (Auto) 0.7 0-1.3 10 ^3/uL Eosinophils # (Auto) 0 0-0.8 10 ^3/uL Basophils # (Auto) 0 0-0.2 10 ^3/uL Nucleated Red Blood Cells 0.0 % Sodium Level 133 L 136-145 mmol/L Potassium Level 3.7 3.5-5.1 mmol/L Chloride Level 96 L 98-107 mmol/L Carbon Dioxide Level 27 20-31 mmol/L Anion Gap 10 5-15 Blood Urea Nitrogen 15 9-23 mg/dL Creatinine 1.22 H 0.550-1.02 mg/dL Glomerular Filtration Rate Calc 46 >90 mL/min BUN/Creatinine Ratio 12.3 10.0-20.0 Serum Glucose 181 H 74-106 mg/dL Calcium Level 8.9 8.7-10.4 mg/dL Prothrombin Time 12.0 H 9.3-11.8 sec Prothrombin Time INR 1.15 0.9-1.15 Activated Partial Thromboplast Time 89.3 *H 24.5-34.5 SEC Urine Color Yellow Yellow Urine Clarity Clear Clear Urine pH 6.0 5.0-9.0 Urine Specific [place] > 1.050 H 1.001-1.035 Urine Protein 1+ H Negative Urine Ketones Trace Negative Urine Blood 2+ H Negative /uL Urine Nitrite Negative Negative Urine Bilirubin Negative Negative Urine Urobilinogen Normal Negative mg/dL Urine Leukocyte Esterase Negative Negative /uL Urine RBC 38 0 - 4 /hpf Urine Microscopic WBC 2 0-5 /HPF Urine Squamous Epithelial Cells None seen <5 /hpf Urine Bacteria None seen None Seen /hpf Urine Mucus Few None Seen Urine Glucose Trace Normal mg/dL Blood Gas Specimen Type Arterial Blood Gas Sample Site Right radial Blood Gas Patient Temperature 37.0 Arterial Blood Date Drawn [id number] Arterial Blood pH 7.463 H 7.350-7.450 Arterial Blood Partial Pressure CO2 36.3 32.0-45.0 mmHg Arterial Blood Partial Pressure O2 70.0 L 83.0-108.0 mmHg Arterial Blood HCO3 25.4 21.0-28.0 mmol/L Arterial Blood Oxygen Saturation 94.1 94.0-98.0 % Arterial Blood Base Excess 2.0 -2.0-3.0 mmol/L Arterial Blood Oxyhemoglobin 93.3 L 94.0-98.0 % Arterial Blood Carboxyhemoglobin 0.6 0.5-1.5 % Arterial Blood Methemoglobin 0.3 0.0-1.5 % Rocky Test Yes Blood Gas Total Hemoglobin 16.90 H 12.0-16.0 g/dL Blood Gas Liter Flow 50.00 Blood Gas Modality High flow FiO2 % 90.0 Test 03/18/25 14:45 03/18/25 14:30 03/18/25 11:04 03/18/25 02:45 Range/Units Influenza Type A Antigen Negative Negative Influenza Type B Antigen Negative Negative SARS-CoV-2 Antigen (Rapid) Negative NEGATIVE Blood Gas Specimen Type Arterial Blood Gas Sample Site Right radial Blood Gas Patient Temperature 37.0 Arterial Blood Date Drawn [id number] Arterial Blood pH 7.472 H 7.350-7.450 Arterial Blood Partial Pressure CO2 35.9 32.0-45.0 mmHg Arterial Blood Partial Pressure O2 60.8 L 83.0-108.0 mmHg Arterial Blood HCO3 25.7 21.0-28.0 mmol/L Arterial Blood Oxygen Saturation 91.6 L 94.0-98.0 % Arterial Blood Base Excess 2.4 -2.0-3.0 mmol/L Arterial Blood Oxyhemoglobin 91.0 L 94.0-98.0 % Arterial Blood Carboxyhemoglobin 0.4 L 0.5-1.5 % Arterial Blood Methemoglobin 0.3 0.0-1.5 % Rocky Test Yes Blood Gas Total Hemoglobin 16.70 H 12.0-16.0 g/dL Blood Gas Modality Mask - nrb Blood Gas Spontaneous Rate 22 FiO2 % 100.0 White Blood Count 20.4 #H 13.0 H 4.4-10.8 10^3/uL Red Blood Count 5.19 5.12 4.0-5.20 10^6/uL Hemoglobin 15.9 15.9 12.2-16.2 g/dL Hematocrit 47.0 H 47.2 H 36.0-46.0 % Mean Corpuscular Volume 90.6 92.2 80.0-100.0 fL Mean Corpuscular Hemoglobin 30.7 31.1 28.0-32.0 pg Mean Corpuscular Hemoglobin Concent 33.8 33.7 32.0-36.0 g/dL Red Cell Distribution Width 14.1 14.4 H 11.8-14.3 % Platelet Count 263 255 140-450 10^3/uL Mean Platelet Volume 8.6 8.7 6.9-10.8 fL Neutrophils (%) (Auto) 89.2 H 86.5 H 37.0-80.0 % Lymphocytes (%) (Auto) 5.5 L 10.0 10.0-50.0 % Monocytes (%) (Auto) 4.8 2.8 0.0-12.0 % Eosinophils (%) (Auto) 0.1 0.2 0.0-7.0 % Basophils (%) (Auto) 0.4 0.5 0.0-2.0 % Neutrophils # (Auto) 18.2 H 11.2 H 1.6-8.6 10 ^3/uL Lymphocytes # (Auto) 1.1 1.3 0.4-5.4 10 ^3/uL Monocytes # (Auto) 1.0 0.4 0-1.3 10 ^3/uL Eosinophils # (Auto) 0 0 0-0.8 10 ^3/uL Basophils # (Auto) 0.1 0.1 0-0.2 10 ^3/uL Nucleated Red Blood Cells 0.0 0.1 % Prothrombin Time 12.0 H 15.1 H 9.3-11.8 sec Prothrombin Time INR 1.15 1.48 H 0.9-1.15 Activated Partial Thromboplast Time 74.1 *H 63.6 H 24.5-34.5 SEC Sodium Level 136 136-145 mmol/L Potassium Level 3.8 3.5-5.1 mmol/L Chloride Level 95 L 98-107 mmol/L Carbon Dioxide Level 25 20-31 mmol/L Anion Gap 16 H 5-15 Blood Urea Nitrogen 16 9-23 mg/dL Creatinine 1.05 #H 0.550-1.02 mg/dL Glomerular Filtration Rate Calc 55 >90 mL/min BUN/Creatinine Ratio 15.2 10.0-20.0 Serum Glucose 316 H 74-106 mg/dL Calcium Level 8.7 8.7-10.4 mg/dL Magnesium Level 1.5 L 1.6-2.6 mg/dL Total Bilirubin 0.5 0.2-1.0 mg/dL Aspartate Amino Transferase (AST) 270 H 13-40 U/L Alanine Aminotransferase (ALT) 42 H 7-40 U/L Alkaline Phosphatase 83 46-116 U/L Troponin I High Sensitivity > 38314 *H 94916 *H </=34 ng/L B-Type Natriuretic Peptide 405.63 0-100 pg/mL Total Protein 7.0 5.7-8.2 g/dL Albumin 4.0 3.2-4.8 g/dL Test 03/18/25 00:02 Range/Units White Blood Count 11.5 H 4.4-10.8 10^3/uL Red Blood Count 4.98 4.0-5.20 10^6/uL Hemoglobin 15.2 12.2-16.2 g/dL Hematocrit 45.0 36.0-46.0 % Mean Corpuscular Volume 90.4 80.0-100.0 fL Mean Corpuscular Hemoglobin 30.5 28.0-32.0 pg Mean Corpuscular Hemoglobin Concent 33.8 32.0-36.0 g/dL Red Cell Distribution Width 13.8 11.8-14.3 % Platelet Count 251 140-450 10^3/uL Mean Platelet Volume 8.5 6.9-10.8 fL Neutrophils (%) (Auto) 70.8 37.0-80.0 % Lymphocytes (%) (Auto) 21.7 10.0-50.0 % Monocytes (%) (Auto) 5.8 0.0-12.0 % Eosinophils (%) (Auto) 1.1 0.0-7.0 % Basophils (%) (Auto) 0.6 0.0-2.0 % Neutrophils # (Auto) 8.1 1.6-8.6 10 ^3/uL Lymphocytes # (Auto) 2.5 0.4-5.4 10 ^3/uL Monocytes # (Auto) 0.7 0-1.3 10 ^3/uL Eosinophils # (Auto) 0.1 0-0.8 10 ^3/uL Basophils # (Auto) 0.1 0-0.2 10 ^3/uL Nucleated Red Blood Cells 0.1 % Prothrombin Time 10.6 9.3-11.8 sec Prothrombin Time INR 1.00 0.9-1.15 Activated Partial Thromboplast Time 26.6 24.5-34.5 SEC Sodium Level 139 136-145 mmol/L Potassium Level 3.2 L 3.5-5.1 mmol/L Chloride Level 102 98-107 mmol/L Carbon Dioxide Level 24 20-31 mmol/L Anion Gap 13 5-15 Blood Urea Nitrogen 12 9-23 mg/dL Creatinine 0.76 0.550-1.02 mg/dL Glomerular Filtration Rate Calc 81 >90 mL/min BUN/Creatinine Ratio 15.8 10.0-20.0 Serum Glucose 169 H 74-106 mg/dL Calcium Level 9.2 8.7-10.4 mg/dL Magnesium Level 1.9 1.6-2.6 mg/dL Total Bilirubin 0.5 0.2-1.0 mg/dL Aspartate Amino Transferase (AST) 45 H 13-40 U/L Alanine Aminotransferase (ALT) 18 7-40 U/L Alkaline Phosphatase 92 46-116 U/L Troponin I High Sensitivity 3352 *H </=34 ng/L Total Protein 7.6 5.7-8.2 g/dL Albumin 4.5 3.2-4.8 g/dL Microbiology Date/Time Source Procedure Growth Status 03/18/25 04:30 Nose MRSA Screen - Final Complete Assessment 75-year-old female past medical history coronary artery disease presents to the hospital with acute ST elevated myocardial infarction status post heart catheterization tonsil have multivessel disease Acute kidney injury multifactorial hemodynamic mediated pustule contrast exposure Renal function is normal STEMI with three-vessel disease seen on left heart catheterization Status post CTA pulmonary arteries negative for pulmonary embolism Decompensated heart failure with ejection fraction 30% Atrial fibrillation with rapid ventricular response Recommend improve hemodynamics, amiodarone drip due to tachy arrhythmia Maintain mean arterial pressure greater than 65 Strict Is&Os patient currently has Elder catheter Recommend nebulizer treatment with non beta agonist because currently tachyca rdic Continue with Lasix Cardiology on the case Guarded prognosis given multivessel cardiac disease no indication for dialysis at this time O'Octavio close monitoring Critical care time 33 minutes, total care time 55 minutes Plan discussed with: Patient, Son SHANNAGusLAYNE MD Mar 19, 2025 17:38
[2025-03-20] VITALS (47 sets, daily range): BP systolic 106–151; BP diastolic 60–99; PULSE 79–112; RESP 13–40; TEMP 98.4–98.7; O2SAT 88–96
[2025-03-20] MEDS: IPRATROPIUM BROM 0.5 MG/2.5ML INH SOL NEB PRN (04:03)
[2025-03-20] MEDS: ALBUTEROL SULF 2.5 MG/0.5ML(0.5%) NEB SOLN NEB PRN (04:03)
[2025-03-20 05:04] LABS: Anion Gap 9 (5-15); Carbon Dioxide 29 mmol/L (20-31); Potassium 3.8 mmol/L (3.5-5.1)
[2025-03-20 05:05] LABS: Calcium 9.5 mg/dL (8.7-10.4)
[2025-03-20 05:07] LABS: Chloride 95 mmol/L (98-107); Sodium 133 mmol/L (136-145)
[2025-03-20 05:09] LABS: Hematocrit 44.4 % (36.0-46.0); Hemoglobin 15.1 g/dL (12.2-16.2); Mean Corpuscular Hemoglobin 30.6 pg (28.0-32.0); Mean Corpuscular Volume 90.0 fL (80.0-100.0); Nucleated Red Blood Cells % 0.0 %
[2025-03-20 05:10] LABS: BUN/Creatinine Ratio 17.1 (10.0-20.0); Blood Urea Nitrogen 21 mg/dL (9-23)
[2025-03-20 05:11] LABS: Magnesium 2.3 mg/dL (1.6-2.6)
[2025-03-20 05:13] LABS: Glucose 177 mg/dL (74-106)
[2025-03-20 09:38] LABS: Base Excess 3.1 mmol/L (-2.0-3.0)
--- NOTE | 2025-03-20 10:35 | DVHPN2 ---
Progress Note Date Seen: Mar 20, 2025 Medical Necessity Reason Pt with a Central, PICC or Fol: Yes The following are medically ne: Elder Catheter Subjective Patient reports: Feels better Objective vital signs Vital Sign Date Time Temp Pulse Resp B/P (MAP) Pulse Ox O2 Delivery O2 Flow Rate FiO2 03/20/25 08:03 98 28 93 50.0 35 03/20/25 08:00 Hi-Flow Heated NC+ 03/20/25 06:00 127/85 (99) 03/20/25 04:00 98.6 98.6 Total Intake and Output 03/19/25 03/19/25 03/20/25 14:59 22:59 06:59 Intake Total 166.62 ml 633.28 ml 173.28 ml Output Total 400 ml 500 ml Balance 166.62 ml 233.28 ml -326.72 ml medications Current Medications Medications Dose Ordered Sig/Davion Route Start Time Stop Time Status Last Admin Dose Admin Sodium Chloride 10 ml Q8HR IV 03/18/25 06:00 03/20/25 05:41 10 ML Aspirin 81 mg DAILY PO 03/19/25 10:00 Hold Nitroglycerin 0.4 mg Q5MINP PRN SL 03/18/25 01:30 Morphine Sulfate 2 mg Q30M PRN IV 03/18/25 01:30 03/18/25 15:08 2 MG Amiodarone HCL/ Dextrose 200 ml @ 16.66 mls/ hr Q12H IV 03/18/25 07:45 03/20/25 07:07 16.66 MLS/HR Acetaminophen 500 mg Q4HP PRN PO 03/18/25 06:15 03/19/25 16:18 500 MG Metoprolol Succinate 50 mg DAILY PO 03/19/25 10:00 03/19/25 11:45 50 MG Apixaban 5 mg BID PO 03/19/25 10:00 03/19/25 22:32 5 MG Acetaminophen/ Hydrocodone Bitart 1 tab Q4HPRN PRN PO 03/18/25 13:30 Hold Lorazepam 0.5 mg Q12HP PRN PO 03/18/25 13:30 03/18/25 21:05 0.5 MG Ondansetron HCl 4 mg Q8HPRN PRN IV 03/18/25 13:45 Furosemide 40 mg BIDD IV 03/18/25 14:45 9/7/25 05:41 40 MG Morphine Sulfate 2 mg Q4HPRN PRN IV 03/18/25 14:45 Albuterol 2.5 mg Q4HPRN PRN NEB 03/20/25 02:45 03/20/25 08:01 2.5 MG Ipratropium [place] 0.5 mg Q4HPRN PRN NEB 03/20/25 02:45 03/20/25 08:01 0.5 MG Examination: GENERAL:Abnormal, LUNGS:Abnormal, CVS:Abnormal laboratory and microbiology Laboratory Tests 03/20/25 04:40 Test 03/20/25 04:40 Range/Units Serum Glucose 177 H 74-106 mg/dL Microbiology Date/Time Source Procedure Growth Status 03/18/25 04:30 Nose MRSA Screen - Final Complete Problem List/Assessment/Plan Problem List/Assessment/Plan 75-year-old female past medical history coronary artery disease presents to the hospital with acute ST elevated myocardial infarction status post heart catheterization tonsil have multivessel disease Acute kidney injury multifactorial hemodynamic mediated pustule contrast exposure Renal function is normal STEMI with three-vessel disease seen on left heart catheterization Status post CTA pulmonary arteries negative for pulmonary embolism Decompensated heart failure with ejection fraction 30% Atrial fibrillation with rapid ventricular response Hold losartan until BP and CARLOS has improved Recommend improve hemodynamics, amiodarone drip due to tachy arrhythmia Maintain mean arterial pressure greater than 65 Strict Is&Os patient currently has Elder catheter Recommend nebulizer treatment with non beta agonist because currently tachycardic Continue with Lasix q12 hrs Cardiology on the case reports severe 3v disease Guarded prognosis given multivessel cardiac disease no indication for dialysis at this time Plan discussed with: Patient Critical Care Time (mins): 33 LAYNE RAMON MD Mar 20, 2025 10:35
[2025-03-20] MEDS ORDERED: DEXTROSE (50%) 50ML SYRG IV PRN (12:45)
--- NOTE | 2025-03-20 13:24 | DVHPN2 ---
Progress Note - Dictate Date Seen: Mar 20, 2025 Medical Necessity Reason Pt with a Central, PICC or Fol: Yes The following are medically ne: Elder Catheter vital signs Vital Sign Date Time Temp Pulse Resp B/P (MAP) Pulse Ox O2 Delivery O2 Flow Rate FiO2 03/20/25 12:19 95 32 92 50.0 35 03/20/25 10:39 113/75 03/20/25 08:00 Hi-Flow Heated NC+ 03/20/25 04:00 98.6 98.6 Total Intake and Output 03/19/25 03/19/25 03/20/25 15:00 23:00 07:00 Intake Total 183.28 ml 633.28 ml 156.62 ml Output Total 400 ml 500 ml Balance 183.28 ml 233.28 ml -343.38 ml medications Current Medications Medications Dose Ordered Sig/Davion Route Start Time Stop Time Status Last Admin Dose Admin Sodium Chloride 10 ml Q8HR IV 03/18/25 06:00 03/20/25 05:41 10 ML Aspirin 81 mg DAILY PO 03/19/25 10:00 Hold Nitroglycerin 0.4 mg Q5MINP PRN SL 03/18/25 01:30 Morphine Sulfate 2 mg Q30M PRN IV 03/18/25 01:30 03/18/25 15:08 2 MG Amiodarone HCL/ Dextrose 200 ml @ 16.66 mls/ hr Q12H IV 03/18/25 07:45 03/20/25 07:07 16.66 MLS/HR Acetaminophen 500 mg Q4HP PRN PO 03/18/25 06:15 03/19/25 16:18 500 MG Metoprolol Succinate 50 mg DAILY PO 03/19/25 10:00 03/20/25 10:39 50 MG Apixaban 5 mg BID PO 03/19/25 10:00 03/20/25 10:38 5 MG Acetaminophen/ Hydrocodone Bitart 1 tab Q4HPRN PRN PO 03/18/25 13:30 Hold Lorazepam 0.5 mg Q12HP PRN PO 03/18/25 13:30 03/18/25 21:05 0.5 MG Ondansetron HCl 4 mg Q8HPRN PRN IV 03/18/25 13:45 Furosemide 40 mg BIDD IV 03/18/25 14:45 03/20/25 05:41 40 MG Morphine Sulfate 2 mg Q4HPRN PRN IV 03/18/25 14:45 Albuterol 2.5 mg Q4HPRN PRN NEB 03/20/25 02:45 03/20/25 08:01 2.5 MG Ipratropium [place] 0.5 mg Q4HPRN PRN NEB 03/20/25 02:45 03/20/25 08:01 0.5 MG Diagnostic Test (Pha) 1 strip ACHS 03/20/25 17:00 UNV Insulin Human Regular AC SC 03/20/25 17:00 UNV Insulin Human Regular HS SC 03/20/25 22:00 UNV Dextrose 50 ml UD PRN IV 03/20/25 12:45 UNV laboratory and microbiology Laboratory Tests 03/20/25 04:40 Test 03/20/25 04:40 Range/Units Serum Glucose 177 H 74-106 mg/dL Assessment/Plan Impression Acute hypoxemic respiratory failure Pulmonary edema vs pneumonia Atelectasis STEMI Patient seen and examined in ANDI Events High oxygen requirements On high flow 50% FiO2 Respiratory status tenuous Labs and imaging reviewed Chest x-ray shows ARDS/pneumonia/pulmonary edema Management Supplemental oxygen Titrate to maintain sats 90% or above Incentive spirometry Prn bipap 06/19 For increased work of breathing Titrate to comfort Continue antibiotics Bronchodilators Diurese Monitor renal function Monitor electrolytes Supplement as needed F/u cardiology Obtain chest x-ray in AM DVT prophylaxis Critical care time 35 minutes Plan discussed with: Patient PIPPA ROSARIO MD Mar 20, 2025 13:24
--- NOTE | 2025-03-20 13:59 | DVH ---
CHEST RADIOGRAPH Indication: resp failure Technique: Single frontal view of the chest was obtained Comparison: XY CHEST PORTABLE on DOS: 03/18/25, XY CHEST PORTABLE on DOS: 03/18/25 FINDINGS: Lines and Tubes: None Lungs: Extensive pulmonary edema, grossly unchanged. Underlying focal consolidation is not excluded. Pleura: No effusion. No pneumothorax. Cardiomediastinal contours: Unremarkable Bones: No acute osseous abnormality. IMPRESSION: 1. Extensive pulmonary edema, unchanged. 2. Underlying focal consolidation is not excluded.
--- NOTE | 2025-03-20 15:09 | DVHPN2 ---
Progress Note - Dictate Date Seen: Mar 20, 2025 Medical Necessity Reason Pt with a Central, PICC or Fol: Yes The following are medically ne: Elder Catheter vital signs Vital Sign Date Time Temp Pulse Resp B/P (MAP) Pulse Ox O2 Delivery O2 Flow Rate FiO2 03/20/25 14:42 97 28 93 50.0 35 03/20/25 14:01 117/72 (87) 03/20/25 14:00 Hi-Flow Heated NC+ 03/20/25 12:00 98.7 98.7 Total Intake and Output 03/19/25 03/19/25 03/20/25 15:00 23:00 07:00 Intake Total 183.28 ml 633.28 ml 173.28 ml Output Total 400 ml 500 ml Balance 183.28 ml 233.28 ml -326.72 ml medications Current Medications Medications Dose Ordered Sig/Davion Route Start Time Stop Time Status Last Admin Dose Admin Sodium Chloride 10 ml Q8HR IV 03/18/25 06:00 03/20/25 14:02 10 ML Aspirin 81 mg DAILY PO 03/19/25 10:00 Hold Nitroglycerin 0.4 mg Q5MINP PRN SL 03/18/25 01:30 Morphine Sulfate 2 mg Q30M PRN IV 03/18/25 01:30 03/18/25 15:08 2 MG Amiodarone HCL/ Dextrose 200 ml @ 16.66 mls/ hr Q12H IV 03/18/25 07:45 03/20/25 07:07 16.66 MLS/HR Acetaminophen 500 mg Q4HP PRN PO 03/18/25 06:15 03/19/25 16:18 500 MG Metoprolol Succinate 50 mg DAILY PO 03/19/25 10:00 03/20/25 10:39 50 MG Apixaban 5 mg BID PO 03/19/25 10:00 03/20/25 10:38 5 MG Acetaminophen/ Hydrocodone Bitart 1 tab Q4HPRN PRN PO 03/18/25 13:30 Hold Lorazepam 0.5 mg Q12HP PRN PO 03/18/25 13:30 03/18/25 21:05 0.5 MG Ondansetron HCl 4 mg Q8HPRN PRN IV 03/18/25 13:45 Furosemide 40 mg BIDD IV 03/18/25 14:45 03/20/25 05:41 40 MG Morphine Sulfate 2 mg Q4HPRN PRN IV 03/18/25 14:45 Albuterol 2.5 mg Q4HPRN PRN NEB 03/20/25 02:45 03/20/25 08:01 2.5 MG Ipratropium [place] 0.5 mg Q4HPRN PRN NEB 03/20/25 02:45 03/20/25 08:01 0.5 MG Diagnostic Test (Pha) 1 strip ACHS 03/20/25 17:00 Insulin Human Regular AC SC 03/20/25 17:00 Insulin Human Regular HS SC 03/20/25 22:00 Dextrose 50 ml UD PRN IV 03/20/25 12:45 laboratory and microbiology Laboratory Tests 03/20/25 04:40 Test 03/20/25 04:40 Range/Units Serum Glucose 177 H 74-106 mg/dL Assessment/Plan 1. STEMI Plan 2. Hypoxic Respiratory Failure, on HiFlo 3. CHF Exacerbation 4. End Stage CHF, EF 30% 5. Atrial Fibrillation with RVR 6. CARLOS 7. Concern for Pneumonia, likely mixed gram positive and negative bacteria. 8. Diffuse CAD Plan: - Cardiology consulted, Dr. Ortega. -LHC showed emboli in RCA, likely from patient not being compliant with eliquis with underlying atrial fibrillation. Cardiology recommending CABG evaluation outpatient once medically improved and stable. - Lasix 40 mg IV twice daily - Continue amiodarone for atrial fibrillation with RVR. Currently rate controlled. -Anticoagulation with Eliquis 5mg BID - Strict I's and O's with goal urinary output 2 to 3 L daily. Metolazone 5mg PO once given on 03/20 to further increase diuresis. Will cautiously monitor renal function. - Nephrology consulted due to concern for oliguria and CARLOS. Will consider switching diuretic to Bumexif diuresis insufficient. Avoid nephrotoxic medications. CARLOS likely worsening from multiple factors (contrast, diuretics, hypoperfusion from afib, congestion from CHF). Holding ARB until improvement in CARLOS. - Renal ultrasound ordered, WNL - Pulmonary consulted for acute respiratory failure now currently on high flow. Presentation consistent with volume overload secondary to CHF. Avoid albuterol given atrial fibrillation with RVR. CXR shows persistent pulmlnary edema with concern for focal consolidation. Will start on ceftriaxone and azithromycin for PNA treatment. -Albumin 25-grams x 1 03/19. -Discussed plan of care with spouse and patient. -Patient is Jehovah witness. No blood products. -Daily CBC and BMP - Full code Plan discussed with: Patient, Spouse EDWARDO NESBITT DO Mar 20, 2025 15:09
[2025-03-20] MEDS: AZITHROMYCIN 250 MG TAB PO SCH (16:38)
[2025-03-20] MEDS: ACCU-CHEK COMFORT CURVE STRIP VI SCH (17:44)
[2025-03-20] MEDS: InsuLIN REG 1unit/0.01ml Soln (100units/ml) SC SCH ×2 (18:18→22:49)
[2025-03-21] VITALS (85 sets, daily range): BP systolic 120–174; BP diastolic 70–110; PULSE 74–103; RESP 11–36; TEMP 97.9–98.8; O2SAT 90–99
--- NOTE | 2025-03-21 05:18 | DVH ---
CHEST RADIOGRAPH Indication: ARDS Technique: Single frontal view of the chest was obtained COMPARISON: XY CHEST XRAY 1 VIEW on DOS: 03/20/25, XY CHEST PORTABLE on DOS: 03/18/25, XY CHEST PORTABLE on DOS: 03/18/25, CT CT ANGIO CHEST CONTRAST on DOS: 03/17/25 FINDINGS: Lines and Tubes: None Lungs: Moderate interval improvement in diffuse multifocal bilateral pulmonary airspace disease. Pleura: No effusion. No pneumothorax. Cardiomediastinal contours: Cardiomegaly. Bones: Unremarkable IMPRESSION: 1. Moderate interval improvement in diffuse multifocal bilateral pulmonary airspace disease. 2. Cardiomegaly.
[2025-03-21 07:59] LABS: Calcium 8.8 mg/dL (8.7-10.4); Potassium 3.8 mmol/L (3.5-5.1); Sodium 137 mmol/L (136-145)
[2025-03-21 08:00] LABS: Anion Gap 13 (5-15); Carbon Dioxide 29 mmol/L (20-31)
[2025-03-21 08:05] LABS: BUN/Creatinine Ratio 31.6 (10.0-20.0)
[2025-03-21 08:10] LABS: Blood Urea Nitrogen 37 mg/dL (9-23); Chloride 95 mmol/L (98-107); Glucose 120 mg/dL (74-106)
[2025-03-21 09:11] LABS: Base Excess 7.6 mmol/L (-2.0-3.0)
--- NOTE | 2025-03-21 09:28 | DVHPN2 ---
Progress Note Date Seen: Mar 21, 2025 Medical Necessity Reason Pt with a Central, PICC or Fol: Yes The following are medically ne: Elder Catheter Subjective Review of Systems: RESPIRATORY:Abnormal Other Systems: Patient seen and examined by myself today in follow-up Objective vital signs Vital Sign Date Time Temp Pulse Resp B/P (MAP) Pulse Ox O2 Delivery O2 Flow Rate FiO2 03/21/25 08:00 98.6 87 30 137/100 (112) 98 98.6 03/21/25 06:47 45.0 40 03/21/25 00:01 Hi-Flow NC Total Intake and Output 03/20/25 03/20/25 03/21/25 14:59 22:59 06:59 Intake Total 1333.28 ml 1373.28 ml 433.28 ml Output Total 1250 ml 1150 ml Balance 1333.28 ml 123.28 ml -716.72 ml medications Current Medications Medications Dose Ordered Sig/Davion Route Start Time Stop Time Status Last Admin Dose Admin Sodium Chloride 10 ml Q8HR IV 03/18/25 06:00 03/21/25 06:23 10 ML Aspirin 81 mg DAILY PO 03/19/25 10:00 Hold Nitroglycerin 0.4 mg Q5MINP PRN SL 03/18/25 01:30 Morphine Sulfate 2 mg Q30M PRN IV 03/18/25 01:30 03/18/25 15:08 2 MG Amiodarone HCL/ Dextrose 200 ml @ 16.66 mls/ hr Q12H IV 03/18/25 07:45 03/21/25 07:51 16.66 MLS/HR Acetaminophen 500 mg Q4HP PRN PO 03/18/25 06:15 03/19/25 16:18 500 MG Metoprolol Succinate 50 mg DAILY PO 03/19/25 10:00 03/20/25 10:39 50 MG Apixaban 5 mg BID PO 03/19/25 10:00 03/20/25 22:50 5 MG Acetaminophen/ Hydrocodone Bitart 1 tab Q4HPRN PRN PO 03/18/25 13:30 Hold Lorazepam 0.5 mg Q12HP PRN PO 03/18/25 13:30 03/18/25 21:05 0.5 MG Ondansetron HCl 4 mg Q8HPRN PRN IV 03/18/25 13:45 Furosemide 40 mg BIDD IV 03/18/25 14:45 03/21/25 06:22 40 MG Morphine Sulfate 2 mg Q4HPRN PRN IV 03/18/25 14:45 Albuterol 2.5 mg Q4HPRN PRN NEB 03/20/25 02:45 03/20/25 08:01 2.5 MG Ipratropium [place] 0.5 mg Q4HPRN PRN NEB 03/20/25 02:45 03/20/25 08:01 0.5 MG Diagnostic Test (Pha) 1 strip ACHS 03/20/25 17:00 03/21/25 06:23 1 STRIP Insulin Human Regular AC SC 03/20/25 17:00 03/21/25 07:21 2 UNITS Insulin Human Regular HS SC 03/20/25 22:00 03/20/25 22:49 2 UNITS Dextrose 50 ml UD PRN IV 03/20/25 12:45 Ceftriaxone Sodium 50 ml @ 100 mls/hr DAILY@09 IV 03/20/25 15:15 03/20/25 16:38 100 MLS/HR Azithromycin 500 mg DAILY PO 03/20/25 15:15 03/20/25 16:38 500 MG Examination: LUNGS:Normal, CVS:Normal, MSK:Normal laboratory and microbiology Laboratory Tests 03/21/25 06:26 03/20/25 04:40 Test 03/21/25 06:26 Range/Units Serum Glucose 120 H 74-106 mg/dL Microbiology Date/Time Source Procedure Growth Status 03/19/25 19:55 Urine - Elder Port Urine Culture - Preliminary Resulted 03/18/25 04:30 Nose MRSA Screen - Final Complete Problem List/Assessment/Plan Problem List/Assessment/Plan Acute kidney injury superimposed Chronic Kidney Disease secondary hemodynamic mediated STEMI with three-vessel disease s/p left heart catheterization Status post CTA pulmonary arteries negative for pulmonary embolism Congestive heart failure, ejection fraction 30% Atrial fibrillation with rapid ventricular response Hypertension Hyperglycemia Recommendations Kidney function is improving Increased urine output Strict I&Os Kidney ultrasound reported no hydronephrosis Check urine protein and electrolytes Blood pressure control Check hemoglobin A1c We will continue to follow up Plan discussed with: Patient RORO ROMERO MD Mar 21, 2025 09:28
[2025-03-21] MEDS: HYALURONIDASE 150 UNIT/1 ML SUBCUT ONE (10:23)
--- NOTE | 2025-03-21 10:28 | DVHPN2 ---
Progress Note Date Seen: Mar 21, 2025 Medical Necessity Reason Pt with a Central, PICC or Fol: Yes The following are medically ne: Blanco Catheter Subjective Patient reports: Feels better Objective vital signs Vital Sign Date Time Temp Pulse Resp B/P (MAP) Pulse Ox O2 Delivery O2 Flow Rate FiO2 03/21/25 08:00 85 16 Hi-Flow Heated NC+ 45 40 40 03/21/25 08:00 98.6 137/100 (112) 98 98.6 Total Intake and Output 03/20/25 03/20/25 03/21/25 15:00 23:00 07:00 Intake Total 1333.28 ml 1373.28 ml 416.62 ml Output Total 1250 ml 1150 ml Balance 1333.28 ml 123.28 ml -733.38 ml medications Current Medications Medications Dose Ordered Sig/Davion Route Start Time Stop Time Status Last Admin Dose Admin Sodium Chloride 10 ml Q8HR IV 03/18/25 06:00 03/21/25 06:23 10 ML Aspirin 81 mg DAILY PO 03/19/25 10:00 Hold Nitroglycerin 0.4 mg Q5MINP PRN SL 03/18/25 01:30 Morphine Sulfate 2 mg Q30M PRN IV 03/18/25 01:30 03/18/25 15:08 2 MG Amiodarone HCL/ Dextrose 200 ml @ 16.66 mls/ hr Q12H IV 03/18/25 07:45 03/21/25 07:51 16.66 MLS/HR Acetaminophen 500 mg Q4HP PRN PO 03/18/25 06:15 03/19/25 16:18 500 MG Metoprolol Succinate 50 mg DAILY PO 03/19/25 10:00 03/20/25 10:39 50 MG Apixaban 5 mg BID PO 03/19/25 10:00 03/20/25 22:50 5 MG Acetaminophen/ Hydrocodone Bitart 1 tab Q4HPRN PRN PO 03/18/25 13:30 Hold Lorazepam 0.5 mg Q12HP PRN PO 03/18/25 13:30 03/18/25 21:05 0.5 MG Ondansetron HCl 4 mg Q8HPRN PRN IV 03/18/25 13:45 Furosemide 40 mg BIDD IV 03/18/25 14:45 03/21/25 06:22 40 MG Morphine Sulfate 2 mg Q4HPRN PRN IV 03/18/25 14:45 Albuterol 2.5 mg Q4HPRN PRN NEB 03/20/25 02:45 03/20/25 08:01 2.5 MG Ipratropium [place] 0.5 mg Q4HPRN PRN NEB 03/20/25 02:45 03/20/25 08:01 0.5 MG Diagnostic Test (Pha) 1 strip ACHS 03/20/25 17:00 03/21/25 06:23 1 STRIP Insulin Human Regular AC SC 03/20/25 17:00 03/21/25 07:21 2 UNITS Insulin Human Regular HS SC 03/20/25 22:00 03/20/25 22:49 2 UNITS Dextrose 50 ml UD PRN IV 03/20/25 12:45 Ceftriaxone Sodium 50 ml @ 100 mls/hr DAILY@09 IV 03/20/25 15:15 03/20/25 16:38 100 MLS/HR Azithromycin 500 mg DAILY PO 03/20/25 15:15 03/20/25 16:38 500 MG Examination: GENERAL:Abnormal, HEENT:Abnormal, LUNGS:Abnormal, CVS:Abnormal, ABDOMEN:Abnormal laboratory and microbiology Laboratory Tests 03/21/25 06:26 03/20/25 04:40 Test 03/21/25 06:26 Range/Units Serum Glucose 120 H 74-106 mg/dL Microbiology Date/Time Source Procedure Growth Status 03/19/25 19:55 Urine - [place] Port Urine Culture - Preliminary Resulted 03/18/25 04:30 Nose MRSA Screen - Final Complete Problem List/Assessment/Plan Problem List/Assessment/Plan stemi resp failure severe chf afib rvr non complaince morbid obesity ckd severe 3v cad cont heparin gtt prn norco pulm consult for hypoxia iv lasix 2nd dose place blanco consider abg if indicated nebs as needed pt is in critical condition with high risk for decompensation d/w RN multiple times dw spoke to son over weekend dc amio gtt start po amio restart plavix x 1 month wean down o2 as possible, on 45L but sats 95% HR well controlled afib 90 mins critical care time spent today Plan discussed with: Patient My Orders My Orders Orders - BELINDA WAGNER MD Procedure Category Date Status Time Parathyroid Hormone LAB 03/21/25 In Process Intact 06:26 Clopidogrel Bisulfate PHA 03/22/25 Verified (Plavix) 10:00 Date of Service: Mar 21, 2025 Billing Provider: BELINDA WAGNER MD Common Visit Codes: NOT BILLABLE BELIDNA WAGNER MD Mar 21, 2025 10:28
--- NOTE | 2025-03-21 14:28 | DVHPN2 ---
Progress Note - Dictate Date Seen: Mar 21, 2025 Medical Necessity Reason Pt with a Central, PICC or Fol: Yes The following are medically ne: Elder Catheter Subjective Patient notes some burning with urination. vital signs Vital Sign Date Time Temp Pulse Resp B/P (MAP) Pulse Ox O2 Delivery O2 Flow Rate FiO2 03/21/25 13:48 95 03/21/25 12:15 26 155/103 (120) 97 03/21/25 12:00 98.2 98.2 03/21/25 10:00 Hi-Flow NC 12 40 40 Total Intake and Output 03/20/25 03/20/25 03/21/25 15:00 23:00 07:00 Intake Total 1333.28 ml 1373.28 ml 416.62 ml Output Total 1250 ml 1150 ml Balance 1333.28 ml 123.28 ml -733.38 ml medications Current Medications Medications Dose Ordered Sig/Davion Route Start Time Stop Time Status Last Admin Dose Admin Nitroglycerin 0.4 mg Q5MINP PRN SL 03/18/25 01:30 Morphine Sulfate 2 mg Q30M PRN IV 03/18/25 01:30 03/18/25 15:08 2 MG Metoprolol Succinate 50 mg DAILY PO 03/19/25 10:00 03/21/25 10:16 50 MG Apixaban 5 mg BID PO 03/19/25 10:00 03/21/25 10:22 5 MG Acetaminophen/ Hydrocodone Bitart 1 tab Q4HPRN PRN PO 03/18/25 13:30 Hold Lorazepam 0.5 mg Q12HP PRN PO 03/18/25 13:30 03/18/25 21:05 0.5 MG Ondansetron HCl 4 mg Q8HPRN PRN IV 03/18/25 13:45 Furosemide 40 mg BIDD IV 03/18/25 14:45 03/21/25 06:22 40 MG Morphine Sulfate 2 mg Q4HPRN PRN IV 03/18/25 14:45 Albuterol 2.5 mg Q4HPRN PRN NEB 03/20/25 02:45 03/20/25 08:01 2.5 MG Ipratropium [place] 0.5 mg Q4HPRN PRN NEB 03/20/25 02:45 03/20/25 08:01 0.5 MG Diagnostic Test (Pha) 1 strip ACHS 03/20/25 17:00 03/21/25 11:30 1 STRIP Insulin Human Regular AC SC 03/20/25 17:00 03/21/25 07:21 2 UNITS Insulin Human Regular HS SC 03/20/25 22:00 03/20/25 22:49 2 UNITS Dextrose 50 ml UD PRN IV 03/20/25 12:45 Ceftriaxone Sodium 50 ml @ 100 mls/hr DAILY@09 IV 03/20/25 15:15 03/21/25 10:24 100 MLS/HR Azithromycin 500 mg DAILY PO 03/20/25 15:15 03/21/25 10:15 500 MG Clopidogrel Bisulfate 75 mg DAILY PO 03/22/25 10:00 Amiodarone HCl 200 mg Q12HR PO 03/21/25 22:00 Acetaminophen 500 mg Q4HP PRN PO 03/21/25 11:00 objective General appearance: No acute distress Respiratory:Coarse breath sounds Cardiovascular: irregular rate. No edema Abdomen: Soft, nondistended, nontender, bowel sounds present MSK: Normal range of motion. Neuro: Alert, no neurological deficits Psych: Appropriate mood and affect. laboratory and microbiology Laboratory Tests 03/21/25 06:26 03/20/25 04:40 Test 03/21/25 06:26 Range/Units Serum Glucose 120 H 74-106 mg/dL Assessment/Plan 1. STEMI Plan 2. Hypoxic Respiratory Failure, on HiFlo 3. CHF Exacerbation 4. End Stage CHF, EF 30% 5. Atrial Fibrillation with RVR 6. CARLOS 7. Concern for Pneumonia, likely mixed gram positive and negative bacteria. 8. Diffuse CAD Plan: - Cardiology consulted, Dr. Ortega. -[facility] showed emboli in RCA, likely from patient not being compliant with eliquis with underlying atrial fibrillation. Cardiology recommending CABG evaluation outpatient once medically improved and stable. - Lasix 40 mg IV twice daily - Continue amiodarone for atrial fibrillation with RVR. Currently rate controlled. -Anticoagulation with Eliquis 5mg BID - Strict I's and O's with goal urinary output 2 to 3 L daily. Metolazone 5mg PO once given on 03/20 to further increase diuresis. Will cautiously monitor renal function. - Nephrology consulted due to concern for oliguria and CARLOS. Will consider switching diuretic to Bumex if diuresis insufficient. Avoid nephrotoxic medications. CARLOS likely worsening from multiple factors (contrast, diuretics, hypoperfusion from afib, congestion from CHF). Holding ARB until improvement in CARLOS. - Renal ultrasound ordered, WNL - Pulmonary consulted for acute respiratory failure now currently on high flow. Presentation consistent with volume overload secondary to CHF. Avoid albuterol given atrial fibrillation with RVR. CXR shows persistent pulmlnary edema with concern for focal consolidation. Will start on ceftriaxone and azithromycin for PNA treatment. -Albumin 25-grams x 1 03/19. -Discussed plan of care with spouse and patient. -Elder exchange today with UA due to burning. -Patient is Jehovah witness. No blood products. -Amioadarone infiltrated on 03/21. Anecdote given. Switching to PO per cardiology. -Daily CBC and BMP - Full code Plan discussed with: Patient EDWARDO NESBITT Mar 21, 2025 14:28
[2025-03-21] MEDS: ACETAMINOPHEN 500 MG TAB or CAP PO PRN (15:43)
--- NOTE | 2025-03-21 17:01 | DVHPN2 ---
Progress Note - Dictate Date Seen: Mar 21, 2025 Medical Necessity Reason Pt with a Central, PICC or Fol: Yes The following are medically ne: Elder Catheter vital signs Vital Sign Date Time Temp Pulse Resp B/P (MAP) Pulse Ox O2 Delivery O2 Flow Rate FiO2 03/21/25 16:15 97 13 131/90 (104) 97 03/21/25 12:00 98.2 98.2 03/21/25 10:25 45.0 40 03/21/25 10:00 Hi-Flow NC Total Intake and Output 03/20/25 03/20/25 03/21/25 15:00 23:00 07:00 Intake Total 1333.28 ml 1373.28 ml 433.28 ml Output Total 1250 ml 1150 ml Balance 1333.28 ml 123.28 ml -716.72 ml medications Current Medications Medications Dose Ordered Sig/Davion Route Start Time Stop Time Status Last Admin Dose Admin Nitroglycerin 0.4 mg Q5MINP PRN SL 03/18/25 01:30 Morphine Sulfate 2 mg Q30M PRN IV 03/18/25 01:30 03/18/25 15:08 2 MG Metoprolol Succinate 50 mg DAILY PO 03/19/25 10:00 03/21/25 10:16 50 MG Apixaban 5 mg BID PO 03/19/25 10:00 03/21/25 10:22 5 MG Acetaminophen/ Hydrocodone Bitart 1 tab Q4HPRN PRN PO 03/18/25 13:30 Hold Lorazepam 0.5 mg Q12HP PRN PO 03/18/25 13:30 03/18/25 21:05 0.5 MG Ondansetron HCl 4 mg Q8HPRN PRN IV 03/18/25 13:45 Furosemide 40 mg BIDD IV 03/18/25 14:45 03/21/25 06:22 40 MG Morphine Sulfate 2 mg Q4HPRN PRN IV 03/18/25 14:45 Albuterol 2.5 mg Q4HPRN PRN NEB 03/20/25 02:45 03/20/25 08:01 2.5 MG Ipratropium [place] 0.5 mg Q4HPRN PRN NEB 03/20/25 02:45 03/20/25 08:01 0.5 MG Diagnostic Test (Pha) 1 strip ACHS 03/20/25 17:00 03/21/25 11:30 1 STRIP Insulin Human Regular AC SC 03/20/25 17:00 03/21/25 07:21 2 UNITS Insulin Human Regular HS SC 03/20/25 22:00 03/20/25 22:49 2 UNITS Dextrose 50 ml UD PRN IV 03/20/25 12:45 Ceftriaxone Sodium 50 ml @ 100 mls/hr DAILY@09 IV 03/20/25 15:15 03/21/25 10:24 100 MLS/HR Azithromycin 500 mg DAILY PO 03/20/25 15:15 03/21/25 10:15 500 MG Clopidogrel Bisulfate 75 mg DAILY PO 03/22/25 10:00 Amiodarone HCl 200 mg Q12HR PO 03/21/25 22:00 Acetaminophen 500 mg Q4HP PRN PO 03/21/25 11:00 03/21/25 15:43 500 MG Polyethylene Glycol 17 gm BID PO 03/21/25 22:00 UNV laboratory and microbiology Laboratory Tests 03/21/25 06:26 03/20/25 04:40 Test 03/21/25 06:26 Range/Units Serum Glucose 120 H 74-106 mg/dL Assessment/Plan Impression Acute hypoxemic respiratory failure Pulmonary edema vs pneumonia Atelectasis STEMI Patient seen and examined in ANDI Events High oxygen requirements On high flow 45% FiO2 Respiratory status tenuous Labs and imaging reviewed Chest x-ray shows ARDS/pneumonia/pulmonary edema Management Supplemental oxygen Titrate to maintain sats 90% or above Incentive spirometry Prn bipap 06/19 For increased work of breathing Titrate to comfort Continue antibiotics Bronchodilators Diurese Monitor renal function Monitor electrolytes Supplement as needed F/u cardiology DVT prophylaxis Critical care time 35 minutes Plan discussed with: Patient PIPPA ROSARIO MD Mar 21, 2025 17:01
[2025-03-21 19:59] LABS: Protein, Urine < 6.0 mg/dL (1-14)
[2025-03-21 20:03] LABS: Urine Protein, UAD Negative (Negative)
[2025-03-21] MEDS: AMIODARONE HCL 200 MG TAB PO SCH (21:52)
[2025-03-21] MEDS: POLYETHYLENE GLYCOL 17 GM PWDR PO SCH (21:52)
[2025-03-22] VITALS (33 sets, daily range): BP systolic 100–147; BP diastolic 44–89; PULSE 81–110; RESP 13–34; TEMP 97.1–98.5; O2SAT 94–100
[2025-03-22 06:46] LABS: Hematocrit 43.8 % (36.0-46.0); Hemoglobin 15.3 g/dL (12.2-16.2); Mean Corpuscular Hemoglobin 31.0 pg (28.0-32.0); Mean Corpuscular Volume 88.7 fL (80.0-100.0); Nucleated Red Blood Cells % 0.0 %
[2025-03-22 06:52] LABS: Alanine Aminotransferase 20 U/L (7-40); Albumin 3.7 g/dL (3.2-4.8); Alkaline Phosphatase 64 U/L (46-116); Anion Gap 10 (5-15); BUN/Creatinine Ratio 24.8 (10.0-20.0); Bilirubin, Total 1.0 mg/dL (0.2-1.0); Calcium 9.0 mg/dL (8.7-10.4); Glucose 106 mg/dL (74-106); Sodium 137 mmol/L (136-145); Total Protein 6.7 g/dL (5.7-8.2)
[2025-03-22 06:59] LABS: Blood Urea Nitrogen 27 mg/dL (9-23); Carbon Dioxide 36 mmol/L (20-31); Chloride 91 mmol/L (98-107); Potassium 2.9 mmol/L (3.5-5.1)
[2025-03-22] MEDS: POTASSIUM EFFERVESENT TAB 25 MEQ PO ONE ×2 (08:33→16:59)
[2025-03-22] MEDS: CLOPIDOGREL BISULFATE 75 MG TAB PO SCH (09:35)
[2025-03-22] MEDS ORDERED: POTASSIUM EFFERVESENT TAB 25 MEQ PO ONE (09:45)
--- NOTE | 2025-03-22 10:17 | DVHPN2 ---
Progress Note Date Seen: Mar 22, 2025 Medical Necessity Reason Pt with a Central, PICC or Fol: Yes The following are medically ne: Elder Catheter Subjective Patient reports: No new complaints Other Systems: PATIENT SEEN AND EXAMINED BY MYSELF TODAY Objective vital signs Vital Sign Date Time Temp Pulse Resp B/P (MAP) Pulse Ox O2 Delivery O2 Flow Rate FiO2 03/22/25 08:01 97.1 88 13 106/71 (83) 95 97.1 03/22/25 08:00 Hi-Flow Heated NC+ 40 35 35 Total Intake and Output 03/21/25 03/21/25 03/22/25 15:00 23:00 07:00 Intake Total 99.98 ml 180 ml 300 ml Output Total 1950 ml 1900 ml Balance 99.98 ml -1770 ml -1600 ml medications Current Medications Medications Dose Ordered Sig/Davion Route Start Time Stop Time Status Last Admin Dose Admin Nitroglycerin 0.4 mg Q5MINP PRN SL 03/18/25 01:30 Morphine Sulfate 2 mg Q30M PRN IV 03/18/25 01:30 03/18/25 15:08 2 MG Metoprolol Succinate 50 mg DAILY PO 03/19/25 10:00 03/21/25 10:16 50 MG Apixaban 5 mg BID PO 03/19/25 10:00 03/22/25 09:36 5 MG Acetaminophen/ Hydrocodone Bitart 1 tab Q4HPRN PRN PO 03/18/25 13:30 Hold Lorazepam 0.5 mg Q12HP PRN PO 03/18/25 13:30 03/18/25 21:05 0.5 MG Ondansetron HCl 4 mg Q8HPRN PRN IV 03/18/25 13:45 Furosemide 40 mg BIDD IV 03/18/25 14:45 03/22/25 06:44 40 MG Morphine Sulfate 2 mg Q4HPRN PRN IV 03/18/25 14:45 Albuterol 2.5 mg Q4HPRN PRN NEB 03/20/25 02:45 03/22/25 06:14 2.5 MG Ipratropium [place] 0.5 mg Q4HPRN PRN NEB 03/20/25 02:45 03/22/25 06:14 0.5 MG Diagnostic Test (Pha) 1 strip ACHS 03/20/25 17:00 03/22/25 06:44 1 STRIP Insulin Human Regular AC SC 03/20/25 17:00 03/21/25 07:21 2 UNITS Insulin Human Regular HS SC 03/20/25 22:00 03/20/25 22:49 2 UNITS Dextrose 50 ml UD PRN IV 03/20/25 12:45 Ceftriaxone Sodium 50 ml @ 100 mls/hr DAILY@09 IV 03/20/25 15:15 03/22/25 08:41 100 MLS/HR Azithromycin 500 mg DAILY PO 03/20/25 15:15 03/22/25 09:35 500 MG Clopidogrel Bisulfate 75 mg DAILY PO 03/22/25 10:00 03/22/25 09:35 75 MG Amiodarone HCl 200 mg Q12HR PO 03/21/25 22:00 03/22/25 09:36 200 MG Acetaminophen 500 mg Q4HP PRN PO 03/21/25 11:00 03/21/25 15:43 500 MG Polyethylene Glycol 17 gm BID PO 03/21/25 22:00 03/22/25 09:36 17 GM Examination: LUNGS:Normal, CVS:Normal, MSK:Normal laboratory and microbiology Laboratory Tests 03/22/25 05:49 Test 03/22/25 05:49 Range/Units Serum Glucose 106 74-106 mg/dL Microbiology Date/Time Source Procedure Growth Status 03/19/25 19:55 Urine - Elder Port Urine Culture - Preliminary Resulted 03/18/25 04:30 Nose MRSA Screen - Final Complete Problem List/Assessment/Plan Problem List/Assessment/Plan Acute kidney injury superimposed Chronic Kidney Disease secondary hemodynamic mediated STEMI with three-vessel disease s/p left heart catheterization Status post CTA pulmonary arteries negative for pulmonary embolism Congestive heart failure, ejection fraction 30% Atrial fibrillation with rapid ventricular response Hypertension DIABETES MELLITUS TYPE 2 Vitamin-D deficiency Recommendations Kidney function is improving Increased urine output Strict I&Os Kidney ultrasound reported no hydronephrosis Blood pressure control Vitamin-D replacement We will continue to follow up Plan discussed with: Patient RORO ROMERO MD Mar 22, 2025 10:17
--- NOTE | 2025-03-22 11:00 | DVHPN2 ---
Progress Note - Dictate Date Seen: Mar 22, 2025 Medical Necessity Reason Pt with a Central, PICC or Fol: Yes The following are medically ne: Elder Catheter Subjective Patient down-titrated on oxygen this AM. vital signs Vital Sign Date Time Temp Pulse Resp B/P (MAP) Pulse Ox O2 Delivery O2 Flow Rate FiO2 03/22/25 10:00 99 [place]ymizer 6 N/A 03/22/25 10:00 104 31 100/76 (84) 03/22/25 08:01 97.1 97.1 Total Intake and Output 03/21/25 03/21/25 03/22/25 15:00 23:00 07:00 Intake Total 99.98 ml 180 ml 300 ml Output Total 1950 ml 1900 ml Balance 99.98 ml -1770 ml -1600 ml medications Current Medications Medications Dose Ordered Sig/Davion Route Start Time Stop Time Status Last Admin Dose Admin Nitroglycerin 0.4 mg Q5MINP PRN SL 03/18/25 01:30 Morphine Sulfate 2 mg Q30M PRN IV 03/18/25 01:30 03/18/25 15:08 2 MG Metoprolol Succinate 50 mg DAILY PO 03/19/25 10:00 03/21/25 10:16 50 MG Apixaban 5 mg BID PO 03/19/25 10:00 03/22/25 09:36 5 MG Acetaminophen/ Hydrocodone Bitart 1 tab Q4HPRN PRN PO 03/18/25 13:30 Hold Lorazepam 0.5 mg Q12HP PRN PO 03/18/25 13:30 03/18/25 21:05 0.5 MG Ondansetron HCl 4 mg Q8HPRN PRN IV 03/18/25 13:45 Furosemide 40 mg BIDD IV 03/18/25 14:45 03/22/25 06:44 40 MG Morphine Sulfate 2 mg Q4HPRN PRN IV 03/18/25 14:45 Albuterol 2.5 mg Q4HPRN PRN NEB 03/20/25 02:45 03/22/25 06:14 2.5 MG Ipratropium [place] 0.5 mg Q4HPRN PRN NEB 03/20/25 02:45 03/22/25 06:14 0.5 MG Diagnostic Test (Pha) 1 strip ACHS 03/20/25 17:00 03/22/25 06:44 1 STRIP Insulin Human Regular AC SC 03/20/25 17:00 03/21/25 07:21 2 UNITS Insulin Human Regular HS SC 03/20/25 22:00 03/20/25 22:49 2 UNITS Dextrose 50 ml UD PRN IV 03/20/25 12:45 Ceftriaxone Sodium 50 ml @ 100 mls/hr DAILY@09 IV 03/20/25 15:15 03/22/25 08:41 100 MLS/HR Azithromycin 500 mg DAILY PO 03/20/25 15:15 03/22/25 09:35 500 MG Clopidogrel Bisulfate 75 mg DAILY PO 03/22/25 10:00 03/22/25 09:35 75 MG Amiodarone HCl 200 mg Q12HR PO 03/21/25 22:00 03/22/25 09:36 200 MG Acetaminophen 500 mg Q4HP PRN PO 03/21/25 11:00 03/21/25 15:43 500 MG Polyethylene Glycol 17 gm BID PO 03/21/25 22:00 03/22/25 09:36 17 GM Ergocalciferol 50,000 unit Q7D PO 03/22/25 10:30 Pantoprazole Sodium 40 mg DAILY@0600 PO 03/22/25 10:45 UNV objective General appearance: No acute distress Respiratory:Coarse breath sounds Cardiovascular: irregular rate. No edema Abdomen: Soft, nondistended, nontender, bowel sounds present MSK: Normal range of motion. Neuro: Alert, no neurological deficits Psych: Appropriate mood and affect. laboratory and microbiology Laboratory Tests 03/22/25 05:49 Test 03/22/25 05:49 Range/Units Serum Glucose 106 74-106 mg/dL Assessment/Plan 1. STEMI Plan 2. Hypoxic Respiratory Failure, on HiFlo 3. CHF Exacerbation 4. End Stage CHF, EF 30% 5. Atrial Fibrillation with RVR 6. CARLOS 7. Concern for Pneumonia, likely mixed gram positive and negative bacteria. 8. Diffuse CAD Plan: - Cardiology consulted, Dr. Ortega. -C showed emboli in RCA, likely from patient not being compliant with eliquis with underlying atrial fibrillation. Cardiology recommending CABG evaluation outpatient once medically improved and stable. - Lasix 40 mg IV twice daily. Will plan to decrease to daily on 03/23. - Continue amiodarone for atrial fibrillation with RVR. Currently rate controlled. Metoprolol 50mg XL with holding parameter of SBP<100. -Anticoagulation with Eliquis 5mg BID - Strict I's and O's with goal urinary output 2 to 3 L daily. Metolazone 5mg PO once given on 03/20 to further increase diuresis. Will cautiously monitor renal function. - Nephrology consulted due to concern for oliguria and CARLOS. Will consider switching diuretic to Bumex if diuresis insufficient. Avoid nephrotoxic medications. CARLOS likely worsening from multiple factors (contrast, diuretics, hypoperfusion from afib, congestion from CHF). Holding ARB until improvement in CARLOS. - Renal ultrasound ordered, WNL - Pulmonary consulted for acute respiratory failure now currently on high flow. Presentation consistent with volume overload secondary to CHF. Avoid albuterol given atrial fibrillation with RVR. CXR shows persistent pulmlnary edema with concern for focal consolidation. Will start on ceftriaxone and azithromycin for PNA treatment. -Albumin 25-grams x 1 03/19. -Elder exchange 03/21 with UA due to burning. -Patient is Jehovah witness. No blood products. -Amioadarone infiltrated on 03/21. Anecdote given. Switching to PO per cardiology. -Daily CBC and BMP - Full code Plan discussed with: Patient EDWARDO NESBITT Mar 22, 2025 10:59
[2025-03-22] MEDS: PANTOPRAZOLE 40 MG TAB PO SCH (11:22)
[2025-03-22] MEDS: ERGOCALCIFEROL 50,000 UNIT(1.25MG) CAP PO SCH (12:29)
--- NOTE | 2025-03-22 12:58 | DVH ---
EXAM: XY CHEST PORTABLE Indication: chf Technique: Single frontal view of the chest was obtained Comparison: XY CHEST PORTABLE on DOS: 03/21/25, XY CHEST XRAY 1 VIEW on DOS: 03/20/25, XY CHEST PORTABLE on DOS: 03/18/25, XY CHEST PORTABLE on DOS: 03/18/25 FINDINGS: Lines and Tubes: None Lungs: Pulmonary vascular congestion Pleura: No effusion. No pneumothorax. Cardiomediastinal contours: Cardiomegaly. Bones: No acute osseous abnormality. IMPRESSION: Cardiomegaly with pulmonary vascular congestion.
--- NOTE | 2025-03-22 16:25 | DVHPN2 ---
Progress Note Date Seen: Mar 22, 2025 Medical Necessity Reason Pt with a Central, PICC or Fol: Yes The following are medically ne: Blanco Catheter Subjective Patient reports: Feels better Other Systems: on less o2 now diuresed very well Objective vital signs Vital Sign Date Time Temp Pulse Resp B/P (MAP) Pulse Ox O2 Delivery O2 Flow Rate FiO2 03/22/25 16:00 103 03/22/25 14:00 17 114/61 (78) 97 03/22/25 10:00 Oxymizer 6 N/A 03/22/25 08:01 97.1 97.1 Total Intake and Output 03/21/25 03/21/25 03/22/25 15:00 23:00 07:00 Intake Total 99.98 ml 180 ml 300 ml Output Total 1950 ml 1900 ml Balance 99.98 ml -1770 ml -1600 ml medications Current Medications Medications Dose Ordered Sig/Davion Route Start Time Stop Time Status Last Admin Dose Admin Nitroglycerin 0.4 mg Q5MINP PRN SL 03/18/25 01:30 Morphine Sulfate 2 mg Q30M PRN IV 03/18/25 01:30 03/18/25 15:08 2 MG Metoprolol Succinate 50 mg DAILY PO 03/19/25 10:00 03/21/25 10:16 50 MG Apixaban 5 mg BID PO 03/19/25 10:00 03/22/25 09:36 5 MG Acetaminophen/ Hydrocodone Bitart 1 tab Q4HPRN PRN PO 03/18/25 13:30 Hold Lorazepam 0.5 mg Q12HP PRN PO 03/18/25 13:30 03/18/25 21:05 0.5 MG Ondansetron HCl 4 mg Q8HPRN PRN IV 03/18/25 13:45 Furosemide 40 mg BIDD IV 03/18/25 14:45 03/22/25 06:44 40 MG Morphine Sulfate 2 mg Q4HPRN PRN IV 03/18/25 14:45 Albuterol 2.5 mg Q4HPRN PRN NEB 03/20/25 02:45 03/22/25 06:14 2.5 MG Ipratropium [place] 0.5 mg Q4HPRN PRN NEB 03/20/25 02:45 03/22/25 06:14 0.5 MG Diagnostic Test (Pha) 1 strip ACHS 03/20/25 17:00 03/22/25 11:23 1 STRIP Insulin Human Regular AC SC 03/20/25 17:00 03/22/25 11:24 2 UNITS Insulin Human Regular HS SC 03/20/25 22:00 03/20/25 22:49 2 UNITS Dextrose 50 ml UD PRN IV 03/20/25 12:45 Ceftriaxone Sodium 50 ml @ 100 mls/hr DAILY@09 IV 03/20/25 15:15 03/22/25 08:41 100 MLS/HR Azithromycin 500 mg DAILY PO 03/20/25 15:15 03/22/25 09:35 500 MG Clopidogrel Bisulfate 75 mg DAILY PO 03/22/25 10:00 03/22/25 09:35 75 MG Amiodarone HCl 200 mg Q12HR PO 03/21/25 22:00 03/22/25 09:36 200 MG Acetaminophen 500 mg Q4HP PRN PO 03/21/25 11:00 03/21/25 15:43 500 MG Polyethylene Glycol 17 gm BID PO 03/21/25 22:00 03/22/25 09:36 17 GM Ergocalciferol 50,000 unit Q7D PO 03/22/25 10:30 03/22/25 12:29 50,000 UNIT Pantoprazole Sodium 40 mg DAILY@0600 PO 03/22/25 10:45 03/22/25 11:22 40 MG Examination: GENERAL:Abnormal, HEENT:Abnormal, LUNGS:Abnormal, CVS:Abnormal, ABDOMEN:Abnormal laboratory and microbiology Laboratory Tests 03/22/25 05:49 Test 03/22/25 05:49 Range/Units Serum Glucose 106 74-106 mg/dL Microbiology Date/Time Source Procedure Growth Status 03/19/25 19:55 Urine - Blanco Port Urine Culture - Final Complete 03/18/25 04:30 Nose MRSA Screen - Final Complete Problem List/Assessment/Plan Problem List/Assessment/Plan stemi resp failure severe chf afib rvr non complaince morbid obesity ckd severe 3v cad cont heparin gtt prn norco pulm consult for hypoxia iv lasix 2nd dose place blanco consider abg if indicated nebs as needed pt is in critical condition with high risk for decompensation d/w RN multiple times dw spoke to son over weekend dc amio gtt start po amio restart plavix x 1 month wean down o2 as possible, HR well controlled afib Plan discussed with: Patient Date of Service: Mar 22, 2025 Billing Provider: BELINDA WAGNER MD Common Visit Codes: NOT BILLABLE BELINDA WAGNER MD Mar 22, 2025 16:25
[2025-03-22] MEDS: MAGNESIUM SULFATE 1GM/100ML 100 ML IV SCH (16:31)
--- NOTE | 2025-03-22 17:08 | DVHPN2 ---
Progress Note - Dictate Date Seen: Mar 22, 2025 Medical Necessity Reason Pt with a Central, PICC or Fol: Yes The following are medically ne: Elder Catheter vital signs Vital Sign Date Time Temp Pulse Resp B/P (MAP) Pulse Ox O2 Delivery O2 Flow Rate FiO2 03/22/25 16:01 98.5 92 17 112/72 (85) 98 98.5 03/22/25 10:00 Oxymizer 6 N/A Total Intake and Output 03/21/25 03/21/25 03/22/25 15:00 23:00 07:00 Intake Total 99.98 ml 180 ml 300 ml Output Total 1950 ml 1900 ml Balance 99.98 ml -1770 ml -1600 ml medications Current Medications Medications Dose Ordered Sig/Davion Route Start Time Stop Time Status Last Admin Dose Admin Nitroglycerin 0.4 mg Q5MINP PRN SL 03/18/25 01:30 Morphine Sulfate 2 mg Q30M PRN IV 03/18/25 01:30 03/18/25 15:08 2 MG Metoprolol Succinate 50 mg DAILY PO 03/19/25 10:00 03/21/25 10:16 50 MG Apixaban 5 mg BID PO 03/19/25 10:00 03/22/25 09:36 5 MG Acetaminophen/ Hydrocodone Bitart 1 tab Q4HPRN PRN PO 03/18/25 13:30 Hold Lorazepam 0.5 mg Q12HP PRN PO 03/18/25 13:30 03/18/25 21:05 0.5 MG Ondansetron HCl 4 mg Q8HPRN PRN IV 03/18/25 13:45 Furosemide 40 mg BIDD IV 03/18/25 14:45 03/22/25 06:44 40 MG Morphine Sulfate 2 mg Q4HPRN PRN IV 03/18/25 14:45 Albuterol 2.5 mg Q4HPRN PRN NEB 03/20/25 02:45 03/22/25 06:14 2.5 MG Ipratropium [place] 0.5 mg Q4HPRN PRN NEB 03/20/25 02:45 03/22/25 06:14 0.5 MG Diagnostic Test (Pha) 1 strip ACHS 03/20/25 17:00 03/22/25 17:00 1 STRIP Insulin Human Regular AC SC 03/20/25 17:00 03/22/25 11:24 2 UNITS Insulin Human Regular HS SC 03/20/25 22:00 03/20/25 22:49 2 UNITS Dextrose 50 ml UD PRN IV 03/20/25 12:45 Ceftriaxone Sodium 50 ml @ 100 mls/hr DAILY@09 IV 03/20/25 15:15 03/22/25 08:41 100 MLS/HR Azithromycin 500 mg DAILY PO 03/20/25 15:15 03/22/25 09:35 500 MG Clopidogrel Bisulfate 75 mg DAILY PO 03/22/25 10:00 03/22/25 09:35 75 MG Amiodarone HCl 200 mg Q12HR PO 03/21/25 22:00 03/22/25 09:36 200 MG Acetaminophen 500 mg Q4HP PRN PO 03/21/25 11:00 03/21/25 15:43 500 MG Polyethylene Glycol 17 gm BID PO 03/21/25 22:00 03/22/25 09:36 17 GM Ergocalciferol 50,000 unit Q7D PO 03/22/25 10:30 03/22/25 12:29 50,000 UNIT Pantoprazole Sodium 40 mg DAILY@0600 PO 03/22/25 10:45 03/22/25 11:22 40 MG laboratory and microbiology Laboratory Tests 03/22/25 05:49 Test 03/22/25 05:49 Range/Units Serum Glucose 106 74-106 mg/dL Assessment/Plan Impression Acute hypoxemic respiratory failure Pulmonary edema vs pneumonia Atelectasis STEMI Patient seen and examined in ANDI Events better on nasal 02 Labs and imaging reviewed Chest x-ray shows ARDS/pneumonia/pulmonary edema Management Supplemental oxygen Titrate to maintain sats 90% or above Incentive spirometry Prn bipap 06/19 For increased work of breathing Titrate to comfort Continue antibiotics Bronchodilators Diurese Monitor renal function Monitor electrolytes Supplement as needed F/u cardiology DVT prophylaxis Plan discussed with: Patient PIPPA ROSARIO MD Mar 22, 2025 17:08
[2025-03-23] VITALS (31 sets, daily range): BP systolic 103–136; BP diastolic 32–89; PULSE 84–117; RESP 11–33; TEMP 97.5–99; O2SAT 93–100
[2025-03-23 05:58] LABS: Sodium 136 mmol/L (136-145)
[2025-03-23 05:59] LABS: Calcium 9.2 mg/dL (8.7-10.4)
[2025-03-23 06:01] LABS: Hematocrit 45.8 % (36.0-46.0); Hemoglobin 16.1 g/dL (12.2-16.2); Mean Corpuscular Hemoglobin 31.4 pg (28.0-32.0); Mean Corpuscular Volume 89.2 fL (80.0-100.0); Nucleated Red Blood Cells % 0.1 %
[2025-03-23 06:04] LABS: Anion Gap 9.99999 (5-15); Chloride 86 mmol/L (98-107); Magnesium 2.4 mg/dL (1.6-2.6); Potassium 3.3 mmol/L (3.5-5.1)
[2025-03-23 06:06] LABS: BUN/Creatinine Ratio 24.8 (10.0-20.0); Blood Urea Nitrogen 29 mg/dL (9-23); Carbon Dioxide > 40 mmol/L (20-31); Glucose 122 mg/dL (74-106)
--- NOTE | 2025-03-23 07:56 | DVH ---
INDICATION: CHF TECHNIQUE: Single frontal view of the chest was obtained COMPARISON: XY CHEST PORTABLE on DOS: 03/22/25, XY CHEST PORTABLE on DOS: 03/21/25, XY CHEST XRAY 1 VIEW on DOS: 03/20/25, XY CHEST PORTABLE on DOS: 03/18/25, XY CHEST PORTABLE on DOS: 03/18/25, XY CHEST PORTABLE on DOS: 03/22/25 FINDINGS: Lines and Tubes: None Lungs: Pulmonary vascular congestion Pleura: No effusion. No pneumothorax. Cardiomediastinal contours: Cardiomegaly. Bones: No acute osseous abnormality. IMPRESSION: Cardiomegaly with pulmonary vascular congestion.
--- NOTE | 2025-03-23 08:01 | DVHPN2 ---
Progress Note Date Seen: Mar 23, 2025 Medical Necessity Reason Pt with a Central, PICC or Fol: Yes The following are medically ne: Blanco Catheter Subjective Patient reports: Feels better Objective vital signs Vital Sign Date Time Temp Pulse Resp B/P (MAP) Pulse Ox O2 Delivery O2 Flow Rate FiO2 03/23/25 05:49 136/81 03/23/25 04:00 84 03/23/25 02:00 27 100 03/23/25 00:01 98.0 98.0 03/22/25 20:00 Oxymizer 6 N/A Total Intake and Output 03/22/25 03/22/25 03/23/25 15:00 23:00 07:00 Intake Total 50 ml 920 ml 450 ml Output Total 1375 ml 1350 ml Balance 50 ml -455 ml -900 ml medications Current Medications Medications Dose Ordered Sig/Davion Route Start Time Stop Time Status Last Admin Dose Admin Nitroglycerin 0.4 mg Q5MINP PRN SL 03/18/25 01:30 Morphine Sulfate 2 mg Q30M PRN IV 03/18/25 01:30 03/18/25 15:08 2 MG Metoprolol Succinate 50 mg DAILY PO 03/19/25 10:00 03/21/25 10:16 50 MG Apixaban 5 mg BID PO 03/19/25 10:00 03/22/25 21:40 5 MG Acetaminophen/ Hydrocodone Bitart 1 tab Q4HPRN PRN PO 03/18/25 13:30 Hold Lorazepam 0.5 mg Q12HP PRN PO 03/18/25 13:30 03/18/25 21:05 0.5 MG Ondansetron HCl 4 mg Q8HPRN PRN IV 03/18/25 13:45 Morphine Sulfate 2 mg Q4HPRN PRN IV 03/18/25 14:45 Albuterol 2.5 mg Q4HPRN PRN NEB 03/20/25 02:45 03/22/25 06:14 2.5 MG Ipratropium [place] 0.5 mg Q4HPRN PRN NEB 03/20/25 02:45 03/22/25 06:14 0.5 MG Diagnostic Test (Pha) 1 strip ACHS 03/20/25 17:00 03/23/25 06:02 1 STRIP Insulin Human Regular AC SC 03/20/25 17:00 03/22/25 11:24 2 UNITS Insulin Human Regular HS SC 03/20/25 22:00 03/22/25 21:42 3 UNITS Dextrose 50 ml UD PRN IV 03/20/25 12:45 Ceftriaxone Sodium 50 ml @ 100 mls/hr DAILY@09 IV 03/20/25 15:15 03/22/25 08:41 100 MLS/HR Azithromycin 500 mg DAILY PO 03/20/25 15:15 03/22/25 09:35 500 MG Clopidogrel Bisulfate 75 mg DAILY PO 03/22/25 10:00 03/22/25 09:35 75 MG Amiodarone HCl 200 mg Q12HR PO 03/21/25 22:00 03/22/25 21:41 200 MG Acetaminophen 500 mg Q4HP PRN PO 03/21/25 11:00 03/21/25 15:43 500 MG Polyethylene Glycol 17 gm BID PO 03/21/25 22:00 03/22/25 21:41 17 GM Ergocalciferol 50,000 unit Q7D PO 03/22/25 10:30 03/22/25 12:29 50,000 UNIT Pantoprazole Sodium 40 mg DAILY@0600 PO 03/22/25 10:45 03/23/25 06:04 40 MG Examination: GENERAL:Abnormal, HEENT:Abnormal, LUNGS:Abnormal, CVS:Abnormal, ABDOMEN:Abnormal laboratory and microbiology Laboratory Tests 03/23/25 05:23 Test 03/23/25 05:23 Range/Units Serum Glucose 122 H 74-106 mg/dL Microbiology Date/Time Source Procedure Growth Status 03/19/25 19:55 Urine - Blanco Port Urine Culture - Final Complete 03/18/25 04:30 Nose MRSA Screen - Final Complete Problem List/Assessment/Plan Problem List/Assessment/Plan stemi resp failure severe chf afib rvr non complaince morbid obesity ckd severe 3v cad cont heparin gtt prn norco pulm consult for hypoxia iv lasix 2nd [address] blanco consider abg if indicated nebs as needed pt is in critical condition with high risk for decompensation d/w RN multiple times dw spoke to son over weekend dc amio gtt start po amio restart plavix x 1 month wean down o2 as possible, HR well controlled afib dc lasix for 1 day, bicarb is very high avoid too much IN's for pt start aldactone 25 mg do not hold BB if possible , decreased dose Plan discussed with: Patient Date of Service: Mar 23, 2025 Billing Provider: BELINDA WAGNER MD Common Visit Codes: NOT BILLABLE BELINDA WGANER MD Mar 23, 2025 08:01
[2025-03-23] MEDS: METOPROLOL SUCCINATE XL 50 MG TAB PO SCH (09:11)
[2025-03-23] MEDS: SPIRONOLACTONE 25 MG TAB PO SCH (09:11)
--- NOTE | 2025-03-23 10:32 | DVHPN2 ---
Progress Note Date Seen: Mar 23, 2025 Medical Necessity Reason Pt with a Central, PICC or Fol: Yes The following are medically ne: Elder Catheter Subjective Review of Systems: RESPIRATORY:Abnormal Other Systems: Patient examined by myself today in follow-up, patient remained high flow oxygen Objective vital signs Vital Sign Date Time Temp Pulse Resp B/P (MAP) Pulse Ox O2 Delivery O2 Flow Rate FiO2 03/23/25 09:11 107 118/78 03/23/25 08:20 95 Oxymizer 6 N/A 03/23/25 02:00 27 03/23/25 00:01 98.0 98.0 Total Intake and Output 03/22/25 03/22/25 03/23/25 15:00 23:00 07:00 Intake Total 50 ml 920 ml 450 ml Output Total 1375 ml 1350 ml Balance 50 ml -455 ml -900 ml medications Current Medications Medications Dose Ordered Sig/Davion Route Start Time Stop Time Status Last Admin Dose Admin Nitroglycerin 0.4 mg Q5MINP PRN SL 03/18/25 01:30 Morphine Sulfate 2 mg Q30M PRN IV 03/18/25 01:30 03/18/25 15:08 2 MG Apixaban 5 mg BID PO 03/19/25 10:00 03/23/25 09:10 5 MG Acetaminophen/ Hydrocodone Bitart 1 tab Q4HPRN PRN PO 03/18/25 13:30 Hold Lorazepam 0.5 mg Q12HP PRN PO 03/18/25 13:30 03/18/25 21:05 0.5 MG Ondansetron HCl 4 mg Q8HPRN PRN IV 03/18/25 13:45 Morphine Sulfate 2 mg Q4HPRN PRN IV 03/18/25 14:45 Albuterol 2.5 mg Q4HPRN PRN NEB 03/20/25 02:45 03/22/25 06:14 2.5 MG Ipratropium [place] 0.5 mg Q4HPRN PRN NEB 03/20/25 02:45 03/22/25 06:14 0.5 MG Diagnostic Test (Pha) 1 strip ACHS 03/20/25 17:00 03/23/25 06:02 1 STRIP Insulin Human Regular AC SC 03/20/25 17:00 03/22/25 11:24 2 UNITS Insulin Human Regular HS SC 03/20/25 22:00 03/22/25 21:42 3 UNITS Dextrose 50 ml UD PRN IV 03/20/25 12:45 Ceftriaxone Sodium 50 ml @ 100 mls/hr DAILY@09 IV 03/20/25 15:15 03/23/25 09:10 100 MLS/HR Azithromycin 500 mg DAILY PO 03/20/25 15:15 03/23/25 09:10 500 MG Clopidogrel Bisulfate 75 mg DAILY PO 03/22/25 10:00 03/23/25 09:10 75 MG Amiodarone HCl 200 mg Q12HR PO 03/21/25 22:00 03/23/25 09:10 200 MG Acetaminophen 500 mg Q4HP PRN PO 03/21/25 11:00 03/21/25 15:43 500 MG Polyethylene Glycol 17 gm BID PO 03/21/25 22:00 03/23/25 09:11 17 GM Ergocalciferol 50,000 unit Q7D PO 03/22/25 10:30 03/22/25 12:29 50,000 UNIT Pantoprazole Sodium 40 mg DAILY@0600 PO 03/22/25 10:45 03/23/25 06:04 40 MG Metoprolol Succinate 25 mg DAILY PO 03/23/25 08:00 03/23/25 09:11 25 MG Spironolactone 25 mg DAILY PO 03/23/25 10:00 03/23/25 09:11 25 MG Acetazolamide Sodium 500 mg Q12HR IV 03/23/25 10:30 03/24/25 22:01 UNV Potassium Bicarbonate 50 meq DAILY PO 03/23/25 10:30 UNV Potassium Chloride 100 ml @ 50 mls/hr Q2H IV 03/23/25 10:30 03/23/25 14:29 UNV Examination: LUNGS:Normal, CVS:Normal, MSK:Normal laboratory and microbiology Laboratory Tests 03/23/25 05:23 Test 03/23/25 05:23 Range/Units Serum Glucose 122 H 74-106 mg/dL Microbiology Date/Time Source Procedure Growth Status 03/19/25 19:55 Urine - Elder Port Urine Culture - Final Complete 03/18/25 04:30 Nose MRSA Screen - Final Complete Problem List/Assessment/Plan Problem List/Assessment/Plan Acute kidney injury superimposed Chronic Kidney Disease secondary hemodynamic mediated STEMI with three-vessel disease s/p left heart catheterization Status post CTA pulmonary arteries negative for pulmonary embolism Congestive heart failure, ejection fraction 30% Atrial fibrillation with rapid ventricular response Hypertension Hypokalemia Metabolic alkalosis due to aggressive diuresis DIABETES MELLITUS TYPE 2 Vitamin-D deficiency Recommendations Kidney function is improving Increased urine output Strict I&Os Kidney ultrasound reported no hydronephrosis Blood pressure control KCL replacement Diamox 500 mg IV piggyback q.12 hours Decreased diuresis to Bumex 1 mg IV daily Vitamin-D replacement We will continue to follow up Plan discussed with: Patient My Orders My Orders Orders - RORO ROMERO MD Procedure Category Date Status Time Acetazolamide PHA 03/23/25 Logged Injection (Diamox 10:30 Potassium Effervesent PHA 03/23/25 Logged Tab (Klor-Con/Ef) 10:30 Potassium Chl PHA 03/23/25 Logged 20meq/100ml 10:30 Basic Metabolic Panel LAB 03/23/25 Verified 10:27 RORO ROMERO MD Mar 23, 2025 10:32
[2025-03-23] MEDS: POTASSIUM CHL 20MEQ/100ML 100 ML IV SCH (11:36)
[2025-03-23] MEDS: acetaZOLAMIDE SODIUM 500 MG VL IV SCH (11:36)
[2025-03-23] MEDS: POTASSIUM EFFERVESENT TAB 25 MEQ PO SCH (11:36)
[2025-03-23 13:51] LABS: Potassium 3.6 mmol/L (3.5-5.1); Sodium 136 mmol/L (136-145)
[2025-03-23 13:53] LABS: Calcium 9.4 mg/dL (8.7-10.4)
[2025-03-23 13:58] LABS: BUN/Creatinine Ratio 32.8 (10.0-20.0)
[2025-03-23 14:11] LABS: Anion Gap 10.99999 (5-15); Blood Urea Nitrogen 39 mg/dL (9-23); Chloride 85 mmol/L (98-107); Glucose 127 mg/dL (74-106)
[2025-03-23 14:13] LABS: Carbon Dioxide > 40 mmol/L (20-31)
--- NOTE | 2025-03-23 19:49 | DVHPN2 ---
Progress Note - Dictate Date Seen: Mar 23, 2025 Medical Necessity Reason Pt with a Central, PICC or Fol: Yes The following are medically ne: Elder Catheter vital signs Vital Sign Date Time Temp Pulse Resp B/P (MAP) Pulse Ox O2 Delivery O2 Flow Rate FiO2 03/23/25 18:01 101 15 124/47 (72) 97 03/23/25 18:00 Oxymizer 4 N/A 03/23/25 17:01 97.5 97.5 Total Intake and Output 03/22/25 03/22/25 03/23/25 15:00 23:00 07:00 Intake Total 50 ml 920 ml 450 ml Output Total 1375 ml 1350 ml Balance 50 ml -455 ml -900 ml medications Current Medications Medications Dose Ordered Sig/Davion Route Start Time Stop Time Status Last Admin Dose Admin Nitroglycerin 0.4 mg Q5MINP PRN SL 03/18/25 01:30 Morphine Sulfate 2 mg Q30M PRN IV 03/18/25 01:30 03/18/25 15:08 2 MG Apixaban 5 mg BID PO 03/19/25 10:00 03/23/25 09:10 5 MG Acetaminophen/ Hydrocodone Bitart 1 tab Q4HPRN PRN PO 03/18/25 13:30 Hold Lorazepam 0.5 mg Q12HP PRN PO 03/18/25 13:30 03/18/25 21:05 0.5 MG Ondansetron HCl 4 mg Q8HPRN PRN IV 03/18/25 13:45 Morphine Sulfate 2 mg Q4HPRN PRN IV 03/18/25 14:45 Albuterol 2.5 mg Q4HPRN PRN NEB 03/20/25 02:45 03/22/25 06:14 2.5 MG Ipratropium [place] 0.5 mg Q4HPRN PRN NEB 03/20/25 02:45 03/22/25 06:14 0.5 MG Diagnostic Test (Pha) 1 strip ACHS 03/20/25 17:00 03/23/25 16:45 1 STRIP Insulin Human Regular AC SC 03/20/25 17:00 03/23/25 17:32 2 UNITS Insulin Human Regular HS SC 03/20/25 22:00 03/22/25 21:42 3 UNITS Dextrose 50 ml UD PRN IV 03/20/25 12:45 Ceftriaxone Sodium 50 ml @ 100 mls/hr DAILY@09 IV 03/20/25 15:15 03/23/25 09:10 100 MLS/HR Azithromycin 500 mg DAILY PO 03/20/25 15:15 03/23/25 09:10 500 MG Clopidogrel Bisulfate 75 mg DAILY PO 03/22/25 10:00 03/23/25 09:10 75 MG Amiodarone HCl 200 mg Q12HR PO 03/21/25 22:00 03/23/25 09:10 200 MG Acetaminophen 500 mg Q4HP PRN PO 03/21/25 11:00 03/21/25 15:43 500 MG Polyethylene Glycol 17 gm BID PO 03/21/25 22:00 03/23/25 09:11 17 GM Ergocalciferol 50,000 unit Q7D PO 03/22/25 10:30 03/22/25 12:29 50,000 UNIT Pantoprazole Sodium 40 mg DAILY@0600 PO 03/22/25 10:45 03/23/25 06:04 40 MG Metoprolol Succinate 25 mg DAILY PO 03/23/25 08:00 03/23/25 09:11 25 MG Spironolactone 25 mg DAILY PO 03/23/25 10:00 03/23/25 09:11 25 MG Acetazolamide Sodium 500 mg Q12HR IV 03/23/25 10:30 03/24/25 22:01 03/23/25 11:36 500 MG Potassium Bicarbonate 50 meq DAILY PO 03/23/25 10:30 03/23/25 11:36 50 MEQ Bumetanide 1 mg DAILY IV 03/24/25 10:00 laboratory and microbiology Laboratory Tests 03/23/25 13:18 03/23/25 05:23 Test 03/23/25 13:18 Range/Units Serum Glucose 127 H 74-106 mg/dL Assessment/Plan Impression Acute hypoxemic respiratory failure Pulmonary edema vs pneumonia Atelectasis STEMI Patient seen and examined in ANDI Events Low oxygen requirements On 2 liters nasal cannula No acute events Labs and imaging reviewed Management Supplemental oxygen Titrate to maintain sats 90% or above Incentive spirometry Prn bipap Continue antibiotics Bronchodilators Diurese Monitor renal function Monitor electrolytes Supplement as needed F/u cardiology DVT prophylaxis Dietary Evaluation Review Comments: Nutrition Recommendation: 1) Consider Ensure Enlive 240ml BID if PO intake <50% 2) Monitor PO intake, lab values, weight trend, and I/O Expected Outcomes/Goals: To meet >75% estimated needs Fu 3-5 days Plan discussed with: Patient PIPPA ROSARIO MD Mar 23, 2025 19:49
--- NOTE | 2025-03-23 22:22 | DVHPN2 ---
Progress Note - Dictate Date Seen: Mar 23, 2025 Medical Necessity Reason Pt with a Central, PICC or Fol: Yes The following are medically ne: Elder Catheter Subjective No new complaints. Patient ambulating independently. vital signs Vital Sign Date Time Temp Pulse Resp B/P (MAP) Pulse Ox O2 Delivery O2 Flow Rate FiO2 03/23/25 22:09 96 Nasal Cannula* 2 28 03/23/25 20:01 97.5 91 17 124/58 (80) 97.5 Total Intake and Output 03/22/25 03/22/25 03/23/25 15:00 23:00 07:00 Intake Total 50 ml 920 ml 450 ml Output Total 1375 ml 1350 ml Balance 50 ml -455 ml -900 ml medications Current Medications Medications Dose Ordered Sig/Davion Route Start Time Stop Time Status Last Admin Dose Admin Nitroglycerin 0.4 mg Q5MINP PRN SL 03/18/25 01:30 Morphine Sulfate 2 mg Q30M PRN IV 03/18/25 01:30 03/18/25 15:08 2 MG Apixaban 5 mg BID PO 03/19/25 10:00 03/23/25 09:10 5 MG Acetaminophen/ Hydrocodone Bitart 1 tab Q4HPRN PRN PO 03/18/25 13:30 Hold Lorazepam 0.5 mg Q12HP PRN PO 03/18/25 13:30 03/18/25 21:05 0.5 MG Ondansetron HCl 4 mg Q8HPRN PRN IV 03/18/25 13:45 Morphine Sulfate 2 mg Q4HPRN PRN IV 03/18/25 14:45 Albuterol 2.5 mg Q4HPRN PRN NEB 03/20/25 02:45 03/22/25 06:14 2.5 MG Ipratropium [place] 0.5 mg Q4HPRN PRN NEB 03/20/25 02:45 03/22/25 06:14 0.5 MG Diagnostic Test (Pha) 1 strip ACHS 03/20/25 17:00 03/23/25 22:11 1 STRIP Insulin Human Regular AC SC 03/20/25 17:00 03/23/25 17:32 2 UNITS Insulin Human Regular HS SC 03/20/25 22:00 03/23/25 22:10 2 UNITS Dextrose 50 ml UD PRN IV 03/20/25 12:45 Ceftriaxone Sodium 50 ml @ 100 mls/hr DAILY@09 IV 03/20/25 15:15 03/23/25 09:10 100 MLS/HR Azithromycin 500 mg DAILY PO 03/20/25 15:15 03/23/25 09:10 500 MG Clopidogrel Bisulfate 75 mg DAILY PO 03/22/25 10:00 03/23/25 09:10 75 MG Amiodarone HCl 200 mg Q12HR PO 03/21/25 22:00 03/23/25 09:10 200 MG Acetaminophen 500 mg Q4HP PRN PO 03/21/25 11:00 03/21/25 15:43 500 MG Polyethylene Glycol 17 gm BID PO 03/21/25 22:00 03/23/25 09:11 17 GM Ergocalciferol 50,000 unit Q7D PO 03/22/25 10:30 03/22/25 12:29 50,000 UNIT Pantoprazole Sodium 40 mg DAILY@0600 PO 03/22/25 10:45 03/23/25 06:04 40 MG Metoprolol Succinate 25 mg DAILY PO 03/23/25 08:00 03/23/25 09:11 25 MG Spironolactone 25 mg DAILY PO 03/23/25 10:00 03/23/25 09:11 25 MG Acetazolamide Sodium 500 mg Q12HR IV 03/23/25 10:30 03/24/25 22:01 03/23/25 11:36 500 MG Potassium Bicarbonate 50 meq DAILY PO 03/23/25 10:30 03/23/25 11:36 50 MEQ Bumetanide 1 mg DAILY IV 03/24/25 10:00 objective General appearance: No acute distress Respiratory: Fine crackles Cardiovascular: irregular rate. No edema Abdomen: Soft, nondistended, nontender, bowel sounds present MSK: Normal range of motion. Neuro: Alert, no neurological deficits Psych: Appropriate mood and affect. laboratory and microbiology Laboratory Tests 03/23/25 13:18 03/23/25 05:23 Test 03/23/25 13:18 Range/Units Serum Glucose 127 H 74-106 mg/dL Assessment/Plan 1. STEMI Plan 2. Hypoxic Respiratory Failure, on Oxymizer 6L 3. CHF Exacerbation 4. End Stage CHF, EF 30% 5. Atrial Fibrillation with RVR 6. CARLOS 7. Concern for Pneumonia, likely mixed gram positive and negative bacteria. 8. Diffuse CAD Plan: - Cardiology consulted, Dr. Ortega. -C showed emboli in RCA, likely from patient not being compliant with eliquis with underlying atrial fibrillation. Cardiology recommending CABG evaluation outpatient once medically improved and stable. - Lasix discontinued. Started on aldactone. - Continue amiodarone for atrial fibrillation with RVR. Currently rate controlled. Metoprolol 50mg XL with holding parameter of SBP<100. -Anticoagulation with Eliquis 5mg BID - Strict I's and O's with goal urinary output 2 to 3 L daily. Metolazone 5mg PO once given on 03/20 to further increase diuresis. Will cautiously monitor renal function. - Nephrology consulted due to concern for oliguria and CARLOS. Will consider switching diuretic to Bumex if diuresis insufficient. Avoid nephrotoxic medications. CARLOS likely worsening from multiple factors (contrast, diuretics, hypoperfusion from afib, congestion from CHF). Holding ARB until improvement in CARLOS. - Renal ultrasound ordered, WNL - Pulmonary consulted for acute respiratory failure now improved to 6L. Presentation consistent with volume overload secondary to CHF. Avoid albuterol given atrial fibrillation with RVR. CXR shows persistent pulmlnary edema with concern for focal consolidation. Ceftriaxone and azithromycin for PNA treatment. -Albumin 25-grams x 1 03/19. -Elder exchange 03/21 with UA due to burning. -Patient is Jehovah witness. No blood products. -Amioadarone infiltrated on 03/21. Anecdote given. Switching to PO per cardiology. -Daily CBC and BMP - Full code Dietary Evaluation Review Comments: Nutrition Recommendation: 1) Consider Ensure Enlive 240ml BID if PO intake <50% 2) Monitor PO intake, lab values, weight trend, and I/O Expected Outcomes/Goals: To meet >75% estimated needs Fu 3-5 days Plan discussed with: Patient EDWARDO NESBITT DO Mar 23, 2025 22:22
[2025-03-24] VITALS (11 sets, daily range): BP systolic 72–119; BP diastolic 55–84; PULSE 79–102; RESP 17–32; TEMP 97.6–98; O2SAT 92–99
[2025-03-24 06:57] LABS: Hematocrit 45.5 % (36.0-46.0); Hemoglobin 15.8 g/dL (12.2-16.2); Mean Corpuscular Hemoglobin 31.3 pg (28.0-32.0); Mean Corpuscular Volume 90.4 fL (80.0-100.0); Nucleated Red Blood Cells % 0.0 %
[2025-03-24] MEDS ORDERED: APIX5TAB PO (06:57)
[2025-03-24] MEDS ORDERED: AMIO200T13 PO (06:57)
[2025-03-24] MEDS ORDERED: SPIR25TA PO (06:57)
[2025-03-24] MEDS ORDERED: CLOP75TA70 PO (06:57)
--- NOTE | 2025-03-24 07:08 | DVHDS2 ---
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 She was taken to the [facility] by cardiology and underwent amgiogram with PTCA to RPDA. please refer to the full report for more details.After the cath she was on amio gtt for afib rvr and noted to be in respiratory failure and intially was on HFNC. Her echo showed EF 30% and she was diuresed in hospital. Eventually her respiratory status improved and now she is on 1-2L o2 via NC and amio gtt is off and now she is downgraded to tele. Her o2 sats are above >90% and vital signs stable. Cardiology has recommeded outpt CT surgery eval for CABG. SHe will be dc home today with meds as recommended by cardiology and [facility] to arrange for outpt CT surgery eval. All scripts sent to patients pharmacy on file and [facility] to arrange for home o2 to be delivered to the bedsid and all outpt follow up. Treatment Plan Discharge Condition of Discharge Good Disposition Home Discharge Instructions Diet: Cardiac 2g Na,low cholest Activity: No Restrictions, As Tolerated Medications: see med sheet Follow Up Care Follow Up/Referral: pcp Discharge Statement: "Patient was advised to return to the ER or call 911 if any headaches, dizziness, shortness of breath, chest pain, abdominal pain, bleeding, fevers, or worsening of medical condition. Patient was counseled about treatment plan, medications, possible side effects, patientverbalized understanding. All questions were answered to the best of my ability. This discharge took greater then 30 minutes in planning, reviewing documentation, counseling the patient, and discussing with other team members." FRANTZ LAND MD Mar 24, 2025 07:08
[2025-03-24 07:33] LABS: Alanine Aminotransferase 16 U/L (7-40); Albumin 3.9 g/dL (3.2-4.8); Alkaline Phosphatase 68 U/L (46-116); Anion Gap 12 (5-15); BUN/Creatinine Ratio 26.4 (10.0-20.0); Calcium 9.4 mg/dL (8.7-10.4); Total Protein 7.0 g/dL (5.7-8.2)
[2025-03-24 07:34] LABS: Bilirubin, Total 0.9 mg/dL (0.2-1.0); Blood Urea Nitrogen 33 mg/dL (9-23); Carbon Dioxide 35 mmol/L (20-31); Chloride 88 mmol/L (98-107); Glucose 147 mg/dL (74-106); Potassium 2.7 mmol/L (3.5-5.1); Sodium 135 mmol/L (136-145)
[2025-03-24] MEDS: BUMETANIDE 2.5mg/10ml (0.25 mg/ml) INJ IV SCH (10:00)
[2025-03-24] MEDS: POTASSIUM EFFERVESENT TAB 25 MEQ PO ONE (10:15)
[2025-03-24] MEDS ORDERED: FURO1TAB33 PO (11:04)
--- NOTE | 2025-03-24 11:43 | DVHPN2 ---
Progress Note Date Seen: Mar 24, 2025 Medical Necessity Reason Pt with a Central, PICC or Fol: Yes The following are medically ne: Blanco Catheter Subjective Patient reports: Feels better Other Systems: plan for dc home Objective vital signs Vital Sign Date Time Temp Pulse Resp B/P (MAP) Pulse Ox O2 Delivery O2 Flow Rate FiO2 03/24/25 10:00 102/84 03/24/25 10:00 102 03/24/25 09:00 98.0 18 95 98.0 03/24/25 08:00 Nasal Cannula* 1 24 Total Intake and Output 03/23/25 03/23/25 03/24/25 15:00 23:00 07:00 Intake Total 50 ml 300 ml Output Total 1500 ml 200 ml Balance 50 ml -1200 ml -200 ml medications Current Medications Medications Dose Ordered Sig/Davion Route Start Time Stop Time Status Last Admin Dose Admin Nitroglycerin 0.4 mg Q5MINP PRN SL 03/18/25 01:30 Morphine Sulfate 2 mg Q30M PRN IV 03/18/25 01:30 03/18/25 15:08 2 MG Apixaban 5 mg BID PO 03/19/25 10:00 03/24/25 09:58 5 MG Acetaminophen/ Hydrocodone Bitart 1 tab Q4HPRN PRN PO 03/18/25 13:30 Hold Lorazepam 0.5 mg Q12HP PRN PO 03/18/25 13:30 03/18/25 21:05 0.5 MG Ondansetron HCl 4 mg Q8HPRN PRN IV 03/18/25 13:45 Morphine Sulfate 2 mg Q4HPRN PRN IV 03/18/25 14:45 Albuterol 2.5 mg Q4HPRN PRN NEB 03/20/25 02:45 03/22/25 06:14 2.5 MG Ipratropium Salter Path 0.5 mg Q4HPRN PRN NEB 03/20/25 02:45 03/22/25 06:14 0.5 MG Diagnostic Test (Pha) 1 strip ACHS 03/20/25 17:00 03/24/25 06:17 1 STRIP Insulin Human Regular AC SC 03/20/25 17:00 03/24/25 06:29 2 UNITS Insulin Human Regular HS SC 03/20/25 22:00 03/23/25 22:10 2 UNITS Dextrose 50 ml UD PRN IV 03/20/25 12:45 Ceftriaxone Sodium 50 ml @ 100 mls/hr DAILY@09 IV 03/20/25 15:15 03/23/25 09:10 100 MLS/HR Azithromycin 500 mg DAILY PO 03/20/25 15:15 03/24/25 09:58 500 MG Clopidogrel Bisulfate 75 mg DAILY PO 03/22/25 10:00 03/24/25 09:58 75 MG Amiodarone HCl 200 mg Q12HR PO 03/21/25 22:00 03/24/25 09:58 200 MG Acetaminophen 500 mg Q4HP PRN PO 03/21/25 11:00 03/21/25 15:43 500 MG Polyethylene Glycol 17 gm BID PO 03/21/25 22:00 03/23/25 22:29 17 GM Ergocalciferol 50,000 unit Q7D PO 03/22/25 10:30 03/22/25 12:29 50,000 UNIT Pantoprazole Sodium 40 mg DAILY@0600 PO 03/22/25 10:45 03/24/25 06:28 40 MG Metoprolol Succinate 25 mg DAILY PO 03/23/25 08:00 03/23/25 09:11 25 MG Spironolactone 25 mg DAILY PO 03/23/25 10:00 03/24/25 09:58 25 MG Acetazolamide Sodium 500 mg Q12HR IV 03/23/25 10:30 03/24/25 22:01 03/23/25 22:30 500 MG Potassium Bicarbonate 50 meq DAILY PO 03/23/25 10:30 03/24/25 09:59 50 MEQ Bumetanide 1 mg DAILY IV 03/24/25 10:00 03/24/25 10:00 1 MG Potassium Chloride 100 ml @ 50 mls/hr Q2H IV 03/24/25 10:15 03/24/25 14:14 UNV Examination: GENERAL:Abnormal, HEENT:Abnormal, LUNGS:Abnormal, CVS:Abnormal, ABDOMEN:Abnormal laboratory and microbiology Laboratory Tests 03/24/25 06:34 Test 03/24/25 06:34 Range/Units Serum Glucose 147 H 74-106 mg/dL Microbiology Date/Time Source Procedure Growth Status 03/19/25 19:55 Urine - Blanco Port Urine Culture - Final Complete 03/18/25 04:30 Nose MRSA Screen - Final Complete Problem List/Assessment/Plan Problem List/Assessment/Plan stemi resp failure severe chf afib rvr non complaince morbid obesity ckd severe 3v cad cont heparin gtt prn norco pulm consult for hypoxia iv lasix 2nd dose place blanco consider abg if indicated nebs as needed pt is in critical condition with high risk for decompensation d/w RN multiple times dw spoke to son over weekend dc amio gtt start po amio restart plavix x 1 month wean down o2 as possible, HR well controlled afib dc home on lasix 20 mg daily start aldactone 25 mg cont BB possible dc home with outpt CT surgical eval Plan discussed with: Patient Dietary Evaluation Review Comments: Nutrition Recommendation: 1) Consider Ensure Enlive 240ml BID if PO intake <50% 2) Monitor PO intake, lab values, weight trend, and I/O Expected Outcomes/Goals: To meet >75% estimated needs Fu 3-5 days Date of Service: Mar 24, 2025 Billing Provider: BELINDA WAGNER MD Common Visit Codes: NOT BILLABLE BELINDA WAGNER MD Mar 24, 2025 11:43
[2025-03-24] MEDS: POTASSIUM CHL 20MEQ/100ML 100 ML IV SCH (12:30)
--- NOTE | 2025-03-24 14:10 | DVHPN2 ---
Progress Note - Dictate Date Seen: Mar 24, 2025 Medical Necessity Reason Pt with a Central, PICC or Fol: No vital signs Vital Sign Date Time Temp Pulse Resp B/P (MAP) Pulse Ox O2 Delivery O2 Flow Rate FiO2 03/24/25 11:57 98.0 80 17 99 03/24/25 10:00 102/84 03/24/25 08:00 Nasal Cannula* 1 24 Total Intake and Output 03/23/25 03/23/25 03/24/25 15:00 23:00 07:00 Intake Total 50 ml 300 ml Output Total 1500 ml 200 ml Balance 50 ml -1200 ml -200 ml laboratory and microbiology Laboratory Tests 03/24/25 06:34 Test 03/24/25 06:34 Range/Units Serum Glucose 147 H 74-106 mg/dL Assessment/Plan Impression Acute hypoxemic respiratory failure Pulmonary edema vs pneumonia Atelectasis STEMI Patient seen and examined Events Low oxygen requirements On 2 liters nasal cannula No distress Labs and imaging reviewed Management Supplemental oxygen Titrate to maintain sats 90% or above Incentive spirometry Prn bipap Continue antibiotics Bronchodilators Diurese Monitor renal function Monitor electrolytes Supplement as needed F/u cardiology DVT prophylaxis Dietary Evaluation Review Comments: Nutrition Recommendation: 1) Consider Ensure Enlive 240ml BID if PO intake <50% 2) Monitor PO intake, lab values, weight trend, and I/O Expected Outcomes/Goals: To meet >75% estimated needs Fu 3-5 days Plan discussed with: Patient IPPPA ROSARIO MD Mar 24, 2025 14:10
--- NOTE | 2025-03-24 14:29 | DVHPN2 ---
Progress Note Date Seen: Mar 24, 2025 Medical Necessity Reason Pt with a Central, PICC or Fol: No Subjective Patient reports: No new complaints Other Systems: Patient seen and examined by myself today in follow-up Objective vital signs Vital Sign Date Time Temp Pulse Resp B/P (MAP) Pulse Ox O2 Delivery O2 Flow Rate FiO2 03/24/25 11:57 98.0 80 17 99 03/24/25 10:00 102/84 03/24/25 08:00 Nasal Cannula* 1 24 Total Intake and Output 03/23/25 03/23/25 03/24/25 15:00 23:00 07:00 Intake Total 50 ml 300 ml Output Total 1500 ml 200 ml Balance 50 ml -1200 ml -200 ml Examination: LUNGS:Normal, CVS:Normal, MSK:Normal laboratory and microbiology Laboratory Tests 03/24/25 06:34 Test 03/24/25 06:34 Range/Units Serum Glucose 147 H 74-106 mg/dL Microbiology Date/Time Source Procedure Growth Status 03/19/25 19:55 Urine - Elder Port Urine Culture - Final Complete 03/18/25 04:30 Nose MRSA Screen - Final Complete Problem List/Assessment/Plan Problem List/Assessment/Plan Acute kidney injury superimposed Chronic Kidney Disease secondary hemodynamic mediated STEMI with three-vessel disease s/p left heart catheterization Status post CTA pulmonary arteries negative for pulmonary embolism Congestive heart failure, ejection fraction 30% Atrial fibrillation with rapid ventricular response Hypertension Hypokalemia Metabolic alkalosis due to aggressive diuresis DIABETES MELLITUS TYPE 2 Vitamin-D deficiency Recommendations Kidney function is improving Increased urine output Strict I&Os Kidney ultrasound reported no hydronephrosis Blood pressure control KCL replacement Diamox 500 mg IV piggyback q.12 hours Decreased diuresis to Bumex 1 mg IV daily Vitamin-D replacement We will continue to follow up Plan discussed with: Patient Dietary Evaluation Review Comments: Nutrition Recommendation: 1) Consider Ensure Enlive 240ml BID if PO intake <50% 2) Monitor PO intake, lab values, weight trend, and I/O Expected Outcomes/Goals: To meet >75% estimated needs Fu 3-5 days RORO ROMEOR MD Mar 24, 2025 14:29
== END 2025-03-24 12:40 | disposition home or self-care (01) | DRG 853 ==
LOC: ER 23:30 → OVERFLOW 03-18 01:22 → ICU CENTRL 03-18 02:10 → DOU 03-20 23:46 → TELE-EAST 03-24 05:19
PROVIDERS: ADMIT Internal Medicine; ATTEND Internal Medicine
PROC: 4A023N7 Measurement of Cardiac Sampling and Pressure, Left Heart, Percutaneous Approach (ICD-10-PCS; principal; 2025-03-18)
PROC: 02703ZZ Dilation of Coronary Artery, One Artery, Percutaneous Approach (ICD-10-PCS; 2025-03-18)
PROC: B211YZZ Fluoroscopy of Multiple Coronary Arteries using Other Contrast (ICD-10-PCS; 2025-03-18)
PROC: 5A0945A Assistance with Respiratory Ventilation, 24-96 Consecutive Hours, High Flow/Velocity Cannula (ICD-10-PCS; 2025-03-18)
DX: A41.9 Sepsis, unspecified organism (principal); I21.19 ST elevation (STEMI) myocardial infarction involving other coronary artery of inferior wall; J80 Acute respiratory distress syndrome; J18.9 Pneumonia, unspecified organism; J98.11 Atelectasis; N17.9 Acute kidney failure, unspecified; I48.19 Other persistent atrial fibrillation; I50.20 Unspecified systolic (congestive) heart failure; I13.0 Hypertensive heart and chronic kidney disease with heart failure and stage 1 through stage 4 chronic kidney disease, or unspecified chronic kidney disease; Z20.822 Contact with and (suspected) exposure to COVID-19; E11.22 Type 2 diabetes mellitus with diabetic chronic kidney disease; N18.9 Chronic kidney disease, unspecified; I50.84 End stage heart failure; R65.20 Severe sepsis without septic shock; E66.01 Morbid (severe) obesity due to excess calories; I25.10 Atherosclerotic heart disease of native coronary artery without angina pectoris; I95.89 Other hypotension; E87.6 Hypokalemia; E83.42 Hypomagnesemia; Z91.199 Patient's noncompliance with other medical treatment and regimen due to unspecified reason; Z79.84 Long term (current) use of oral hypoglycemic drugs; Z79.899 Other long term (current) drug therapy; Z68.37 Body mass index [BMI] 37.0-37.9, adult; Z88.8 Allergy status to other drugs, medicaments and biological substances
CPT/HCPCS: 36415; 36600; 71045; 71275; 76775; 80048; 80053; 81001; 82306; 82570; 82805; 82962; 83036; 83735; 83880; 83970; 84100; 84156; 84300; 84484; 85025; 85610; 85730; 87081; 87086; 87426; 87804; 92941; 93005; 93306; 93458; 94640; 96365; 99152; 99291; G0378; J1815; J2250; J2405; J3470; J3480; Q9967